=== PATIENT | male | born 1950 | race Caucasian/White ===

== ENCOUNTER → 2017-06-22 09:04 | Outpatient (CLI) | payer OTHER, SELFPAY ==
[2017-06-22 10:19] LABS: Add Manual Diff / Slide Review NO; Basophils Percent Auto 1.2 % (0-2); Eosinophils Percent Auto 3.8 % (2-4); Hematocrit 42.3 % (41-53); Hemoglobin 15.1 g/dL (13.5-17.5); Lymphocytes Percent Auto 30.7 % (25-40); Mean Corpuscular HGB Conc 35.7 % (30-36); Mean Corpuscular Hemoglobin 33.4 PG (26-34); Mean Corpuscular Volume 93.5 fL (80-100); Monocytes Percent Auto 7.6 % (3-14); Neutrophils Absolute Auto 2700 /uL (3000-5900); Neutrophils Percent Auto 56.7 % (50-75); Platelet Count 144 X10^3/uL (150-400); Red Blood Cell Count 4.53 X10^6/uL (4.5-5.9); Red Cell Distribution Width 12.4 % (11.6-14.8); White Blood Cell Count 4.7 X10^3/uL (4.5-11.0)
[2017-06-22 10:26] LABS: Hemoglobin A1C% w Est Avg Glu 5.9 % (4.0-6.0)
[2017-06-22 10:29] LABS: Alanine Aminotransferase 33 IU/L (21-72); Albumin 4.4 g/dL (3.5-5.0); Albumin Globulin Ratio 1.6 (1.0-2.8); Alkaline Phosphatase 40 U/L (38-126); Aspartate Aminotransferase 27 IU/L (17-59); BUN Creatinine Ratio 17.1 (6-22); Bilirubin Total 1.2 mg/dL (0.2-1.3); Calcium 9.5 mg/dL (8.4-10.2); Cholesterol 153 mg/dL (140-199); Estimated Glomerular Filt Rate > 60.0 mL/min (>60); Globulin 2.8 g/dL (1.7-4.1); Glucose 164 mg/dL (80-110); HDL Cholesterol 52 mg/dL (40-60); HEMOLYSIS < 15 (0-50); LDL Cholesterol Calculated 83 mg/dL (<100); Potassium 4.4 mmol/L (3.4-5.1); Sodium 140 mmol/L (137-145); Total Protein 7.2 g/dL (6.3-8.2); Triglycerides 88 mg/dL (35-150)
[2017-06-22 11:15] LABS: Creatinine Urine Random 202.1 mg/dL
[2017-06-22 11:20] LABS: Microalbumi Creatinin Ratio Ur 14.8 ug/mg CR (<30)
[2017-06-22 11:29] LABS: Thyroid Stimulating Hormone 3.09 uIU/mL (0.47-4.68)
== END ==
PROVIDERS: PCP Family Medicine; Visit Provider Family Medicine
DX: E78.2 Mixed hyperlipidemia (principal); Z51.81 Encounter for therapeutic drug level monitoring
CPT/HCPCS: 36415; 80053; 80061; 82043; 82570; 83036; 84443; 85025

== ENCOUNTER → 2017-07-06 12:21 | Outpatient (CLI) | payer OTHER, SELFPAY | PROVIDERS: Family Provider Family Medicine; PCP Family Medicine; Visit Provider Family Medicine | DX: Z12.5 Encounter for screening for malignant neoplasm of prostate (principal) | CPT/HCPCS: 36415; 84153 ==

== ENCOUNTER → 2017-12-26 08:19 | Outpatient (CLI) | payer OTHER, SELFPAY ==
--- NOTE | 2017-12-26 09:35 | PM.TREADMILL ---
Cardiac Stress Test Report Referral & Results Date Patient Seen: 12/26/17 Requesting provider: Dia Russell Indication: Chest pain Rest ECG: Unremarkable Please note: Actual ECG tracings can be found in the PACS system.
--- NOTE | 2017-12-26 09:36 | PM.TREADMILL ---
Cardiac Stress Test Report Referral & Results Date Patient Seen: 12/26/17 Requesting provider: Dia Russell Indication: Chest pain Rest ECG: Unremarkable Procedure Note: Today following both written and verbal informed consent, the patient was exercised according to a standard Yoan protocol. The patient exercised for a total of 12 min 1 sec achieving a maximum heart rate of 162. Patient's maximum systolic blood pressure was 200. This was an estimated 12.8 MET's. There are no ST-T segment changes Normal heart rate and blood pressure response to exercise Functional aerobic impairment way way way off the scale estimate his aerobic capacity to be equal to that of an active 40-year-old male Rare PVC seen in recovery only Impression: No evidence of ischemia Amazing exercise capacity Please note: Actual ECG tracings can be found in the PACS system.
== END ==
PROVIDERS: PCP Family Medicine; Visit Provider Family Medicine
DX: R07.9 Chest pain, unspecified (principal); E78.5 Hyperlipidemia, unspecified
CPT/HCPCS: 93016; 93017; 93018

== ENCOUNTER → 2018-01-18 10:00 | Outpatient (CLI) | payer OTHER, SELFPAY ==
[2018-01-18 10:41] LABS: Alanine Aminotransferase 34 IU/L (21-72); Albumin 4.6 g/dL (3.5-5.0); Albumin Globulin Ratio 1.6 (1.0-2.8); Alkaline Phosphatase 46 U/L (38-126); Aspartate Aminotransferase 28 IU/L (17-59); BUN Creatinine Ratio 18.6 (6-22); Bilirubin Total 1.2 mg/dL (0.2-1.3); Blood Urea Nitrogen 13 mg/dL (9-20); Calcium 9.3 mg/dL (8.4-10.2); Carbon Dioxide 22 mmol/L (22-32); Chloride 104 mmol/L (98-107); Cholesterol 205 mg/dL (140-199); Estimated Glomerular Filt Rate > 60.0 mL/min (>60); Globulin 2.8 g/dL (1.7-4.1); Glucose 146 mg/dL (80-110); HDL Cholesterol 54 mg/dL (40-60); HEMOLYSIS < 15 (0-50); LDL Cholesterol Calculated 132 mg/dL (<100); Potassium 4.3 mmol/L (3.4-5.1); Sodium 140 mmol/L (137-145); Total Protein 7.4 g/dL (6.3-8.2); Triglycerides 93 mg/dL (35-150)
[2018-01-18 10:50] LABS: Hemoglobin A1C% w Est Avg Glu 6.3 % (4.0-6.0)
== END ==
PROVIDERS: PCP Family Medicine; Visit Provider Family Medicine
DX: E78.5 Hyperlipidemia, unspecified (principal)
CPT/HCPCS: 36415; 80053; 80061; 83036

== ENCOUNTER 2018-04-14 04:58 | Emergency (ER) | payer OTHER, SELFPAY ==
[2018-04-14 05:05] VITALS: BP 142/86; PULSE 75; RESP 18; TEMP 36.8; O2SAT 95; BMI 27.1
--- NOTE | 2018-04-14 05:13 | ED_ITS ---
HPI - General Adult General Chief complaint: Urogenital-Male Stated complaint: LEFT KIDNEY PAIN Time Seen by Provider: 04/14/18 05:03 Source: patient Mode of arrival: ambulatory Limitations: no limitations History of Present Illness HPI narrative: Patient is a 67-year-old male here for evaluation of left-sided kidney pain. Patient states that he started to have some symptoms yesterday. Overnight things got worse. He has had some urinary hesitancy and urgency. He states that urinating does not change any of his symptoms. No constipation or diarrhea. He states that several years ago he had a kidney stone. He states this feels somewhat like kidney stone. No vomiting. No fevers. Has not tried anything for symptoms prior to arrival. Related Data Home Medications Medication Instructions Recorded Confirmed ASPIRIN (Aspir-Low) 81 mg PO Q DAY #0 09/07/10 03/02/18 Fish Oil (#FISH OIL) #0 09/07/10 03/02/18 Previous Rx's Medication Instructions Recorded Glucose: Test Strips str BID #100 01/31/17 lovastatin 40 mg tablet 40 mg PO HS #90 tab 03/02/18 hydrocodone-acetaminophen [[place]] 1 tab PO Q4-6H PRN #14 tab 04/14/18 ondansetron 4 mg PO Q6-8H PRN #10 tab 04/14/18 Allergies Allergy/AdvReac Type Severity Reaction Status Date / Time metformin [METFORMIN] Allergy Unknown Verified 03/02/18 10:52 Review of Systems Constitutional Denies fever(s) and Denies headache(s) ENT Ears, Nose, Mouth, and Throat: Denies vertigo and Denies headache(s) Cardiovascular Denies chest pain and Denies dyspnea Respiratory Denies dyspnea Gastrointestinal Gastrointestinal: Denies abdominal pain Genitourinary Reports flank pain, Reports urinary frequency and Reports urinary urgency Musculoskeletal Denies myalgias and Denies arthralgias Integumentary/Breasts Denies rash Neurologic Denies vertigo and Denies headache(s) Hematologic/Lymphatic Denies easy bleeding and Denies easy bruising PFSH Family History Brother Age: 58 Diabetes mellitus Social History Smoking Status: Former smoker Exam Initial Vital Signs Initial Vital Signs: Vital Signs Temperature 98.2 F 04/14/18 05:05 Pulse Rate 75 04/14/18 05:05 Respiratory Rate 18 04/14/18 05:05 Blood Pressure 142/86 H 04/14/18 05:05 Pulse Oximetry 95 04/14/18 05:05 Const General: cooperative, well developed, well groomed and No acute distress Orientation: alert, awake and oriented x3 HENMT Head: normal to inspection and normocephalic Resp Effort & Inspection: normal respiratory effort Auscultation: clear to auscultation bilaterally Cardio Rate: regular rate Rhythm: regular rhythm GI Inspection: non-distended Palpation: soft, No firm and No tender Back/Spine/Pelvis Back: No CVA tenderness Skin Lesions: no lesions Rashes: no rashes Neuro General: alert, awake and oriented x3 Cognition: normal cognition Speech: speech normal Extrem General: normal to inspection and capillary refill normal Psych Appearance: grossly normal and well kempt Course Orders Ordered: ED Orders 04/14/18 05:14 CT kidney ureter bladder (KUB) Stat 04/14/18 05:28 Basic Metabolic Panel Stat Discontinued Medications Acetaminophen (Tylenol) 975 mg PO NOW ONE Stop: 04/14/18 05:14 Last Admin: 04/14/18 05:32 Dose: 975 mg Lidocaine HCl 6.8 ml/ Sodium (Chloride) 56.8 mls @ 340.8 mls/hr IV NOW ONE Stop: 04/14/18 05:17 Last Admin: 04/14/18 06:14 Dose: 340.8 mls/hr Ketorolac Tromethamine (Toradol) 30 mg IV NOW ONE Stop: 04/14/18 05:14 Last Admin: 04/14/18 05:33 Dose: 30 mg Vital Signs - 8 hr 04/14/18 05:05 Temperature 98.2 F Pulse Rate 75 Respiratory Rate 18 Blood Pressure 142/86 H Pulse Oximetry 95 Medical Decision Making Lab Data Lab results reviewed: Yes I reviewed the patient's lab results. Result diagrams: 04/14/18 05:28 Lab Results 04/14/18 Range/Units 05:28 Sodium 137 (137-145) mmol/L Potassium 4.2 (3.4-5.1) mmol/L Chloride 103 (98-107) mmol/L Carbon Dioxide 23 (22-32) mmol/L BUN 15 (9-20) mg/dL Creatinine 0.90 (0.66-1.25) mg/dL Estimated GFR > 60.0 (>60) mL/min BUN/Creatinine Ratio 16.7 (6-22) Glucose 205 H (80-110) mg/dL Calcium 9.1 (8.4-10.2) mg/dL Urine Dip Bedside Urine Glucose Negative Bedside Urine Bilirubin - Negative Bedside Urine Ketone - Negative Urine Specific Hyden 1.030 Bedside Urine Occult Blood +/- Bedside Urine pH 6.0 Bedside Urine Protein - Negative Bedside Urine Urobilinogen - Negative Bedside Urine Nitrite - Negative Bedside Urine Leukocytes - Negative Esterase Point of care testing: Urine Dip Bedside Urine Glucose Negative Bedside Urine Bilirubin - Negative Bedside Urine Ketone - Negative Urine Specific Hyden 1.030 Bedside Urine Occult Blood +/- Bedside Urine pH 6.0 Bedside Urine Protein - Negative Bedside Urine Urobilinogen - Negative Bedside Urine Nitrite - Negative Bedside Urine Leukocytes - Negative Esterase Imaging Data CT scan - abdomen: Radiologist's impression: Mild left hydronephrosis secondary to a left UVJ calculus measuring 4 mm. MDM Narrative Medical decision making narrative: Creatinine is unremarkable. CT scan does show a 4 mm left-sided stone. Afebrile. No signs of infection. Almost complete resolution of pain after lidocaine. Informed patient of the CT scan findings. Will send home with pain medicine and nausea medication. He is given return precautions. He expressed understanding and agreement with plan. Discharge Plan Departure Patient Disposition: Home Clinical Impression: Renal colic on left side Instructions: DI for Kidney Stones Activity Restrictions/Additional Instructions: Increase your fluid intake Take medications as instructed. Return to the emergency department for any new symptoms, worsening pain, fevers, inability to urinate, or any other concerning symptoms. Prescriptions: New hydrocodone-acetaminophen [[place]] 5-325 mg tablet 1 tab PO Q4-6H PRN (Reason: pain) Qty: 14 RF: 0 ondansetron 4 mg tablet,disintegrating 4 mg PO Q6-8H PRN (Reason: nausea and vomiting) Qty: 10 RF: 0 No Action lovastatin 40 mg tablet 40 mg PO HS Qty: 90 RF: 1 ASPIRIN (Aspir-Low) 81 mg PO Q DAY Qty: 0 RF: 0 Fish Oil (#FISH OIL) Qty: 0 RF: 0 Glucose: Test Strips BID Qty: 100 RF: 3 Referrals: Dia Russell DO [Primary Care Provider] -
--- NOTE | 2018-04-14 05:14 | DI.CT.S_ITS ---
PROCEDURE: CT KIDNEY URETER BLADDER (KUB) INDICATIONS: Left side pain concern for stone TECHNIQUE: Noncontrast 5 mm thick sections acquired from the diaphragms to the symphysis. 5 mm thick coronal and sagittal reformats were then performed. For radiation dose reduction, the following was used: automated exposure control, adjustment of mA and/or kV according to patient size. COMPARISON: None. FINDINGS: Image quality: Excellent. Lung bases: Lung bases are clear. Heart size is normal. Very small hiatal hernia. Urinary system: Both kidneys are normal in size. There are small bilateral nephroliths measuring approximately 2 mm on the left and up to 4 mm on the right. There is mild left-sided hydroureteronephrosis secondary to a 4 mm distal left ureteral stone identified at the level of the ureterovesicular junction. No significant periureteral or perinephric stranding. No right-sided hydronephrosis. No urinary bladder stone. Visualized course of the right ureter is normal. No right ureteral stone. Bladder wall thickness is normal; no calcified bladder stones. Other solid organs: Liver is normal in size. Geographic fatty infiltration of the right hepatic lobe. Gallbladder appears normal in noncontrast CT appearance. Pancreas is normal in contours. Spleen is normal in size. No adrenal nodules. Peritoneum and bowel: Unenhanced bowel loops demonstrate normal wall thickness and caliber. No free fluid or air. Nodes and vessels: No retroperitoneal or mesenteric adenopathy by size criteria. Aorta and inferior vena cava are normal in caliber. Abdominal wall: No ventral hernias. Pelvis: No free pelvic fluid. No inguinal hernias or adenopathy. Bones: No suspicious bony lesions. No acute vertebral body compression fractures. Multilevel lumbar spondylosis with apparent progression at L1-2. IMPRESSION: 1. Bilateral nephrolithiasis with mild left hydroureteronephrosis secondary to an obstructing 4 mm distal left ureteral stone visualized at the left ureterovesicular junction. 2. Mild geographic fatty infiltration of the liver. Findings are concordant with preliminary radiology report. Dictated by: León Garcia M.D. on 04/14/2018 15:18 Approved by: León Garcia M.D. on 04/14/2018 at 15:26
[2018-04-14] MEDS: ACETAMINOPHEN 325 MG TABLET 975 MG PO (05:32)
[2018-04-14] MEDS: KETOROLAC 60 MG/2 ML VIAL 30 MG IV (05:33)
[2018-04-14 05:49] LABS: BUN Creatinine Ratio 16.7 (6-22); Blood Urea Nitrogen 15 mg/dL (9-20); Calcium 9.1 mg/dL (8.4-10.2); Carbon Dioxide 23 mmol/L (22-32); Chloride 103 mmol/L (98-107); Estimated Glomerular Filt Rate > 60.0 mL/min (>60); Glucose 205 mg/dL (80-110); HEMOLYSIS 17 (0-50); Potassium 4.2 mmol/L (3.4-5.1); Sodium 137 mmol/L (137-145)
[2018-04-14] MEDS: LIDOCAINE 2% 6.8 ML in SODIUM CHLORIDE 0.9% 50 ML 340.8 ML IV (06:14)
[2018-04-14 06:45] VITALS: BP 161/86; PULSE 74; RESP 15; O2SAT 96
== END 2018-04-14 06:47 | disposition home or self-care (01) ==
PROVIDERS: Emergency Provider Emergency Medicine; PCP Family Medicine
DX: N20.0 Calculus of kidney (principal)
CPT/HCPCS: 36591; 74176; 80048; 81003; 96374; 96375; 99283; 99284; J1885

== ENCOUNTER → 2018-06-11 13:37 | Outpatient (CLI) | payer OTHER, SELFPAY ==
--- NOTE | 2018-06-11 | DI.MRI.S_ITS ---
PROCEDURE: MR LUMBAR SPINE WO CON INDICATIONS: Anesthesia of skin, pain TECHNIQUE: Noncontrast sagittal T1 spin echo and T2 fast echo, sagittal STIR, axial T1 and T2 fast spin echo through the lumbar spine. In cases with scoliosis, additional coronal T2 fast spin echo may be performed. COMPARISON: [facility], CT, ABDOMEN/PELVIS WITH CONTRAST, 06/28/2008, 19:10. [facility], CT, CT KIDNEY URETER BLADDER (KUB), 04/14/2018, 5:29. FINDINGS: Image quality: Excellent. Alignment and Curvature: There is normal bony alignment. Bone Marrow: Marrow is of normal overall signal. Scattered foci are seen, which are hyperintense on T1-weighted and T2-weighted imaging, which are most consistent with benign vertebral body hemangiomas. No acute vertebral body compression fractures. Spinal Cord: Conus medullaris terminates at the L1 level. Visualized cord demonstrates normal signal and size. Paraspinous Soft Tissues: No paravertebral masses. T12-L1: Moderate loss of disc height is seen. Loss of disc signal is seen. [id number]-salnllbg disc bulge is seen. No significant neural foraminal narrowing is seen. Minimal central canal narrowing is seen. L1-L2: Moderate loss of disc height is seen. Loss of disc signal is seen. Moderate generalized disc bulge is seen. Reactive marrow endplate changes are seen which are hypointense on T1-weighted imaging and hyperintense on T2 weighted imaging, which is most consistent with edema (Modic type I changes). Mild facet joint hypertrophy is seen. There is at least moderate right-sided and mild left-sided neural foraminal narrowing seen. Moderate central canal narrowing is seen, as on series 5 image 11. L2-L3: Moderate loss of disc height is seen. Loss of disc signal is seen. Moderate disc bulge is seen, which is eccentric to the right side. Moderate facet joint hypertrophy is seen. Fluid is seen within the facet joints themselves. There is at least moderate bilateral neural foraminal narrowing seen, right worse than left. Moderate to severe central canal narrowing is seen at this level, as on series 5 images 16 and 17. L3-L4: Moderate loss of disc height is seen. Loss of disc signal is seen. Moderate generalized disc bulge is seen. There is a central disc protrusion seen. Moderate facet joint hypertrophy is seen. Moderate to severe bilateral neural foraminal narrowing is seen, left worse than right. There is a degree of compression seen upon the exiting nerve roots. Severe central canal narrowing is seen, as on series 5 image 22. L4-L5: Moderate loss of disc height is seen. Loss of disc signal is seen. Moderate generalized disc bulge is seen. Moderate to prominent facet hypertrophy is seen. There is at least moderate right-sided and moderate to severe left-sided neural foraminal narrowing seen. There is compression seen upon the exiting L4 nerve roots, left worse than right. Moderate to severe central canal narrowing is seen, as on series 5 image 27. L5-S1: Moderate loss of disc height is seen. Loss of disc signal is seen. Moderate generalized disc bulge is seen. Mild facet joint hypertrophy is seen. There is moderate to severe bilateral neural foraminal narrowing seen. There is a degree of compression seen upon the exiting L5 nerve roots. Mild central canal narrowing is seen. IMPRESSION: Multiple levels of lumbar spine degenerative change are seen, which are overall most prominent at L3-L4, where there is severe central canal narrowing and moderate to severe bilateral neural foraminal narrowing. Dictated by: Jose De Jesus Ferris M.D. on 06/11/2018 at 14:06 Approved by: Jose De Jesus Ferris M.D. on 06/11/2018 at 14:12
== END ==
PROVIDERS: PCP Family Medicine; Visit Provider Specialist
DX: R20.0 Anesthesia of skin (principal); M54.42 Lumbago with sciatica, left side; M54.41 Lumbago with sciatica, right side; M47.816 Spondylosis without myelopathy or radiculopathy, lumbar region; M48.061 Spinal stenosis, lumbar region without neurogenic claudication; G89.29 Other chronic pain
CPT/HCPCS: 72148

== ENCOUNTER → 2018-06-25 11:48 | Outpatient (CLI) | payer OTHER, SELFPAY ==
--- NOTE | 2018-06-25 11:50 | DI.RAD.S_ITS ---
PROCEDURE: XR ELBOW LT MIN 3V INDICATIONS: Left elbow pain TECHNIQUE: 3 views of the elbow were acquired. COMPARISON: None. FINDINGS: Bones: No fractures or dislocations. No suspicious bony lesions. Soft tissues: No elbow joint effusion. No suspicious soft tissue calcifications. IMPRESSION: No elbow fracture or dislocation. No joint effusion. Dictated by: Abdirahman Garg M.D. on 06/25/2018 at 16:05 Approved by: Abdirahman Garg M.D. on 06/25/2018 at 16:07
== END ==
PROVIDERS: PCP Family Medicine; Visit Provider Registered Nurse
DX: M25.522 Pain in left elbow (principal)
CPT/HCPCS: 73080

== ENCOUNTER → 2018-08-22 07:59 | Outpatient (CLI) | payer OTHER, SELFPAY ==
[2018-08-22 09:05] LABS: Hemoglobin A1C% w Est Avg Glu 5.6 % (4.0-6.0)
[2018-08-22 09:34] LABS: Alanine Aminotransferase 20 IU/L (21-72); Albumin 4.2 g/dL (3.5-5.0); Albumin Globulin Ratio 1.5 (1.0-2.8); Alkaline Phosphatase 48 U/L (38-126); Aspartate Aminotransferase 25 IU/L (17-59); Blood Urea Nitrogen 16 mg/dL (9-20); Calcium 9.5 mg/dL (8.4-10.2); Carbon Dioxide 24 mmol/L (22-32); Chloride 103 mmol/L (98-107); Cholesterol 238 mg/dL (140-199); Estimated Glomerular Filt Rate > 60.0 mL/min (>60); Globulin 2.8 g/dL (1.7-4.1); Glucose 163 mg/dL (80-110); HDL Cholesterol 59 mg/dL (40-60); HEMOLYSIS < 15 (0-50); LDL Cholesterol Calculated 154 mg/dL (<100); Potassium 4.5 mmol/L (3.4-5.1); Sodium 138 mmol/L (137-145); Triglycerides 127 mg/dL (35-150)
== END ==
PROVIDERS: PCP Family Medicine; Visit Provider Family Medicine
DX: E11.9 Type 2 diabetes mellitus without complications (principal); E78.5 Hyperlipidemia, unspecified
CPT/HCPCS: 36415; 80053; 80061; 83036

== ENCOUNTER → 2018-08-24 08:30 | Outpatient (CLI) | payer OTHER, SELFPAY ==
--- NOTE | 2018-08-24 08:31 | DI.US.S_ITS ---
PROCEDURE: US CAROTID DOPPLER BI INDICATIONS: CONJUCTIVAL HEMORRHAGE TECHNIQUE: Color and pulse Doppler interrogation was performed of both carotid systems, with image documentation and velocity measurements. COMPARISON: None. FINDINGS: Stenosis calculations are based on SRU (Society of Radiologists in Ultrasound) criteria. Right side: Brachial blood pressure: 140/84 mm Hg. Common carotid artery peak systolic velocity: 75 cm/sec. Internal carotid artery peak systolic velocity: 64 cm/sec. Internal carotid artery end diastolic velocity: 27 cm/sec. External carotid artery peak systolic velocity: 76 cm/sec. ICA/CCA peak systolic ratio: 0.9. Mayo scale imaging description: Heavy scattered plaque. Percent internal carotid artery stenosis: Less than 50%. Vertebral artery: Flow direction is antegrade. Left side: Brachial blood pressure: 138/82 mm Hg. Common carotid artery peak systolic velocity: 92 cm/sec. Internal carotid artery peak systolic velocity: 65 cm/sec. Internal carotid artery end diastolic velocity: 18 cm/sec. External carotid artery peak systolic velocity: 90 cm/sec. ICA/CCA peak systolic ratio: 0.7. Mayo scale imaging description: Heavy scattered plaque. Percent internal carotid artery stenosis: Less than 50%. Vertebral artery: Flow direction is antegrade. IMPRESSION: Less than 50% bilateral internal carotid artery stenosis. Dictated by: Shaun Garcia [facility] Interpreted: Abdirahman Garg MD on 08/27/2018 at 16:59 Approved by: Abdirahman Garg M.D. on 08/27/2018 at 17:33
== END ==
PROVIDERS: PCP Family Medicine; Visit Provider Family Medicine
DX: H11.33 Conjunctival hemorrhage, bilateral (principal)
CPT/HCPCS: 93880

== ENCOUNTER 2018-09-17 12:00 | Outpatient (RCR) | payer OTHER, SELFPAY ==
--- NOTE | 2018-08-17 12:01 | PT.OIE ---
Current Diagnoses Pain in left elbow (08/17/18) Lateral epicondylitis, left elbow (08/17/18) Past Medical History (Last Reviewed 06/28/17 @ 10:55 by Dia Russell DO) Hearing loss (Chronic 1996) History of tinnitus (Chronic 1994) Hyperlipidemia (Chronic Unknown) Knee pain (Chronic Unknown) Type 2 diabetes mellitus (Chronic ~2014) Chickenpox (Resolved 1956) Colon polyps (Resolved Unknown) Measles (Resolved 1954) Past Surgical History (Last Reviewed 06/28/17 @ 10:55 by Dia Russell DO) History of tonsillectomy Provider Visit Care Team Role Provider Type Dia Russell DO Primary Care Provider Physician Specialty: Family Practice Address: [address] [place] [address], [id number] Email: [email or web address] Fernandes MD Attending Provider Physician Specialty: Orthopedic Surgery Address: [address] [place] [address], [id number] Email: [email or web address] Physical Therapy Initial Evaluation PT-OP-A Visit Information Start: 08/17/18 11:29 Freq: Status: Active Protocol: Document 08/17/18 09:00 DCW (Rec: 08/17/18 12:01 [facility] [id number]) Out-Patient Physical Therapy Visit Information Visit Information Visit Type Initial Evaluation Visit Start Time 09:00 Visit Stop Time 09:45 Total Visit Minutes 45 Visit Number 1 Number of SALES RECRUITER Visits 0 Evaluation Information Evaluation Date 08/17/18 PT-OP-B Current Condition Start: 08/17/18 11:29 Freq: Status: Active Protocol: Document 08/17/18 09:00 DCW (Rec: 08/17/18 12:01 [facility] [id number]) Current Condition History of Current Condition Onset Date 7 months Current Complaints left elbow pain History of Current Condition Pt is a 68 year old male presenting with a 6-7 month history of left lateral elbow pain. 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 This time, however, he is unaware of what may have started his pain. Pt also notes that when he has had it previously, it always went away rather quickly, but this has been around for 7 months now. Pt notes the pain has not influenced most of his daily activities, however he has cut back on his weightlifting in an effort to not aggravate it. Prior Functional Status Baseline Function- ADL's Independent Baseline Function- Mobility Independent Current Functional Impairments (Reported) Functional Limitations- Recreation/ Limits weightlifting Hobbies PT-OP-C Subjective Start: 08/17/18 11:29 Freq: Status: Active Protocol: Document 08/17/18 09:00 DCW (Rec: 08/17/18 12:01 DC [id number]) OP-PT Subjective Patient Comments Patient Comments It does seem to have gotten a little better over the past few months, but it still bother me quite a bit. Patient Reported Progress Improving OP-PT Pain Assessment Pain Assessment Grid Paper Pain Assessment Grid Completed Yes Location Left Lateral Elbow Intensity 2 Scale Used Numeric (1 - 10) Other Pain Alleviating Factors Naproxin PT-OP-F Manual Assessment Start: 08/17/18 11:29 Freq: Status: Active Protocol: Document 08/17/18 09:00 DCW (Rec: 08/17/18 12:01 [facility] [id number]) Manual Assessments Soft Tissue Assessment Soft Tissue Mobility Assessment With palpation, left lateral epicondyle and surrounding has feeling of mild edema/ inflammation underneath the surface. Pt reports tenderness at location of lateral epicondyle, common extensor tendon, and proximal wrist extensors. PT-OP-K Range of Motion Start: 08/17/18 11:29 Freq: Status: Active Protocol: Document 08/17/18 09:00 DCW (Rec: 08/17/18 12:01 [facility] [id number]) Elbow/Forearm Range of Motion Elbow/Forearm Left Active Elbow/Forearm ROM WFL Yes ROM Testing Position Sitting Wrist Goniometric Range of Motion Wrist Left Wrist ROM WFL Yes PT-OP-L Special Tests Start: 08/17/18 11:29 Freq: Status: Active Protocol: Document 08/17/18 09:00 DCW (Rec: 08/17/18 12:01 [facility] [id number]) Special Tests Elbow Special Tests Lateral Epicondylitis Flexed Test Results Negative Lateral Epicondylitis Extended Test Results Positive Left PT-OP-M Strength Start: 08/17/18 11:29 Freq: Status: Active Protocol: Document 08/17/18 09:00 DCW (Rec: 08/17/18 12:01 [facility] [id number]) Wrist Strength Wrist Manual Muscle Testing Left Comments Strength WNL, mild pain with resisted supination Hand Installation Specialist/Pinch Strength Hand Strength Left Comments Dynamometer out for service, test upon return. PT-OP-Q Treatments Start: 08/17/18 11:29 Freq: Status: Active Protocol: Document 08/17/18 09:00 DCW (Rec: 08/17/18 12:01 [facility] [id number]) Therapeutic Exercises Sitting Exercises 4-way wrist flexion Sitting Exercise Name 4-way wrist flexion Side left Pronation/Supination Sitting Exercise Name Forearm pronation/supination Side left [facility] Treatment Taping 1 Body Location Left lateral epicondylitis taping Type of Tape Kinesio Tape Comments 3 I strips PT-OP-R Modalities Start: 08/17/18 11:29 Freq: Status: Active Protocol: Document 08/17/18 09:00 DCW (Rec: 08/17/18 12:01 [facility] [id number]) Ultrasound Therapy Treatment Left Lateral Elbow Treatment Duration (minutes) 8 Patient Position Sitting Coupling Medium Ultrasound Gel Applicator Size (cm2) 5 Frequency Setting (mHz) 3 Duty Cycle 50% PT-OP-T Assessment and Plan Start: 08/17/18 11:29 Freq: Status: Active Protocol: Document 08/17/18 09:00 DCW (Rec: 08/17/18 12:01 [facility] [id number]) Physical Therapy Assessment Rehab Potential Rehabilitation Potential Good Evaluation Complexity Number of Personal Factors/Comorbidities 0 Number of Body Systems Impaired 1-2 Clinical Presentation at Evaluation Stable Impairments Impairments Pain Soft Tissue Mobility Goals Two Impairment Pt restraict with his weightlifting routine due to elbow pain [place] Goal (LTG) Pt to return to full routine with no limitations and no increased pain. LTG Duration 10/18/18 One Impairment Pt does not have an appropriate home exercise program Short Term Goal (STG) Pt to be independent and compliant with an appropriate HEP STG Duration 09/17/18 Assessment Summary Assessment Pt arrives to his physical therapy evaluation with a fairly classic presentation of left lateral epicondylitis. Pt is muscular at baseline, so his strength does not appear to be too negatively effected at this time. Pt's has tenderness to palpation and a noticeable pocket of mild edema/inflammation around his lateral epicondyle. Pt should benefit from skilled therapy focusing on STM/cross-friction massage, US, Iontophoresis, gentle strengthening, K-tape, and Ice massage. Clinic's dynamometer is currently out for servicing, and upon it's return, pt's garnetter strength should also be assessed. Physical Therapy Plan Frequency and Duration Frequency of Treatment 2x/Week Duration of Treatment 2 months Plan of Care Start Date 08/17/18 Plan of Care End Date 10/18/18 Therapeutic Interventions Therapeutic Interventions Home Exercise Program Joint Mobilizations Manual Therapy Patient/Caregiver Education Self-Care/Home Management Soft Tissue Mobilization Taping Therapeutic Activities Therapeutic Exercises Modalities Cold Pack/Ice Massage Electric Stimulation Hot Packs Iontophoresis Ultrasound Other Therapeutic Interventions Iontophoresis /c Dexamethasone , 4 mg/mL Next Visit Focus/Plan Next Note Type Treatment Note Next Visit Plan US, STM, strengthening, Ionto if signed POC is returned, assess effectiveness of K-tape
--- NOTE | 2018-08-17 12:02 | PT.OPPOC ---
Current Diagnoses Pain in left elbow (08/17/18) Lateral epicondylitis, left elbow (08/17/18) Provider Visit Care Team Role Provider Type Dia Russell DO Primary Care Provider Physician Specialty: Family Practice Address: [address] [place] [address], [id number] Email: [email or web address] Herman Fernandes MD Attending Provider Physician Specialty: Orthopedic Surgery Address: [address] [place] [address], [id number] Email: [email or web address] Plan Of Care PT-OP-T Assessment and Plan Start: 08/17/18 11:29 Freq: Status: Active Protocol: Document 08/17/18 09:00 DCW (Rec: 08/17/18 12:01 DCW [id number]) Physical Therapy Assessment Rehab Potential Rehabilitation Potential Good Evaluation Complexity Number of Personal Factors/Comorbidities 0 Number of Body Systems Impaired 1-2 Clinical Presentation at Evaluation Stable Impairments Impairments Pain Soft Tissue Mobility Goals Two Impairment Pt restraict with his weightlifting routine due to elbow pain Mcfp Goal (LTG) Pt to return to full routine with no limitations and no increased pain. LTG Duration 10/18/18 One Impairment Pt does not have an appropriate home exercise program Short Term Goal (STG) Pt to be independent and compliant with an appropriate HEP STG Duration 09/17/18 Assessment Summary Assessment Pt arrives to his physical therapy evaluation with a fairly classic presentation of left lateral epicondylitis. Pt is muscular at baseline, so his strength does not appear to be too negatively effected at this time. Pt's has tenderness to palpation and a noticeable pocket of mild edema/inflammation around his lateral epicondyle. Pt should benefit from skilled therapy focusing on STM/cross-friction massage, US, Iontophoresis, gentle strengthening, K-tape, and Ice massage. Clinic's dynamometer is currently out for servicing, and upon it's return, pt's ehr trainer strength should also be assessed. Physical Therapy Plan Frequency and Duration Frequency of Treatment 2x/Week Duration of Treatment 2 months Plan of Care Start Date 08/17/18 Plan of Care End Date 10/18/18 Therapeutic Interventions Therapeutic Interventions Home Exercise Program Joint Mobilizations Manual Therapy Patient/Caregiver Education Self-Care/Home Management Soft Tissue Mobilization Taping Therapeutic Activities Therapeutic Exercises Modalities Cold Pack/Ice Massage Electric Stimulation Hot Packs Iontophoresis Ultrasound Other Therapeutic Interventions Iontophoresis /c Dexamethasone , 4 mg/mL Next Visit Focus/Plan Next Note Type Treatment Note Next Visit Plan US, STM, strengthening, Ionto if signed POC is returned, assess effectiveness of K-tape Plan of Care Dates Plan of Care Start Date 08/17/18 Plan of Care End Date 10/18/18 Please Sign and Return: I have reviewed this Plan of Care and certify that the skilled therapy services above are required to meet the patient?s needs. Physician Signature Date Printed Name and Credentials Clinical Instructor Signature Printed Name and Credentials
--- NOTE | 2018-08-21 16:49 | PT.OTN ---
Current Diagnoses Pain in left elbow (08/21/18) Lateral epicondylitis, left elbow (08/21/18) Physical Therapy Treatment Note PT-OP-A Visit Information Start: 08/17/18 11:29 Freq: Status: Active Protocol: Document 08/21/18 16:37 GGD (Rec: 08/21/18 16:49 GGD [email or web address]) Out-Patient Physical Therapy Visit Information Visit Information Visit Type Treatment Note Visit Start Time 13:45 Visit Stop Time 14:25 Total Visit Minutes 40 Visit Number 2 Number of REST ROOM MATRON Visits 1 Evaluation Information Evaluation Date 08/17/18 PT-OP-B Current Condition Start: 08/17/18 11:29 Freq: Status: Active Protocol: Document 08/17/18 09:00 DCW (Rec: 08/17/18 12:01 DCW [id number]) Current Condition History of Current Condition Onset Date 7 months Current Complaints left elbow pain History of Current Condition Pt is a 68 year old male presenting with a 6-7 month history of left lateral elbow pain. 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 This time, however, he is unaware of what may have started his pain. Pt also notes that when he has had it previously, it always went away rather quickly, but this has been around for 7 months now. Pt notes the pain has not influenced most of his daily activities, however he has cut back on his weightlifting in an effort to not aggravate it. Prior Functional Status Baseline Function- ADL's Independent Baseline Function- Mobility Independent Current Functional Impairments (Reported) Functional Limitations- Recreation/ Limits weightlifting Hobbies PT-OP-C Subjective Start: 08/17/18 11:29 Freq: Status: Active Protocol: Document 08/21/18 16:37 GGD (Rec: 08/21/18 16:49 GGD [email or web address]) OP-PT Subjective Patient Comments Patient Comments Pt state he getting better, the tape didn't stay on very long. PT-OP-F Manual Assessment Start: 08/17/18 11:29 Freq: Status: Active Protocol: Document 08/17/18 09:00 DCW (Rec: 08/17/18 12:01 DCW [id number]) Manual Assessments Soft Tissue Assessment Soft Tissue Mobility Assessment With palpation, left lateral epicondyle and surrounding has feeling of mild edema/ inflammation underneath the surface. Pt reports tenderness at location of lateral epicondyle, common extensor tendon, and proximal wrist extensors. PT-OP-K Range of Motion Start: 08/17/18 11:29 Freq: Status: Active Protocol: Document 08/17/18 09:00 DCW (Rec: 08/17/18 12:01 [facility] [id number]) Elbow/Forearm Range of Motion Elbow/Forearm Left Active Elbow/Forearm ROM WFL Yes ROM Testing Position Sitting Wrist Goniometric Range of Motion Wrist Left Wrist ROM WFL Yes PT-OP-L Special Tests Start: 08/17/18 11:29 Freq: Status: Active Protocol: Document 08/17/18 09:00 DCW (Rec: 08/17/18 12:01 [facility] [id number]) Special Tests Elbow Special Tests Lateral Epicondylitis Flexed Test Results Negative Lateral Epicondylitis Extended Test Results Positive Left PT-OP-M Strength Start: 08/17/18 11:29 Freq: Status: Active Protocol: Document 08/17/18 09:00 DCW (Rec: 08/17/18 12:01 DC [id number]) Wrist Strength Wrist Manual Muscle Testing Left Comments Strength WNL, mild pain with resisted supination Hand Windows [employer] Deployment Lead/Pinch Strength Hand Strength Left Comments Dynamometer out for service, test upon return. PT-OP-Q Treatments Start: 08/17/18 11:29 Freq: Status: Active Protocol: Document 08/21/18 16:37 GGD (Rec: 08/21/18 16:49 GGD [email or web address]) Therapeutic Exercises Sitting Exercises eccentric wrist flexion Side left Equipment Used red thera bar Reps/Minutes 20 x wrist extension str Sitting Exercise Name wrist extension str Side left Reps/Minutes 60 sec 4-way wrist flexion Sitting Exercise Name 4-way wrist flexion Side left Pronation/Supination Sitting Exercise Name Forearm pronation/supination Side left Equipment Used Hammer Manual Therapy Treatment Soft Tissue Mobilization 1 Body Location left forearm Mobilization Type Oscillations Intensity/Depth Moderate Body Position Sitting PT-OP-R Modalities Start: 08/17/18 11:29 Freq: Status: Active Protocol: Document 07/16/19 16:37 GGD (Rec: 07/16/19 16:49 GGD [email or web address]) Ultrasound Therapy Treatment Left Lateral Elbow Treatment Duration (minutes) 8 Patient Position Sitting Coupling Medium Ultrasound Gel Applicator Size (cm2) 5 Frequency Setting (mHz) 3 Duty Cycle 50% PT-OP-T Assessment and Plan Start: 08/17/18 11:29 Freq: Status: Active Protocol: Document 08/21/18 16:37 GGD (Rec: 08/21/18 16:49 GGD [email or web address]) Physical Therapy Assessment Assessment Summary Assessment Pt need cues for exercise. He did have mild tenderness with STM. Pt has good understanding of HEP> Physical Therapy Plan Frequency and Duration Frequency of Treatment 2x/Week Duration of Treatment 2 months Plan of Care Start Date 08/17/18 Plan of Care End Date 10/18/18 Next Visit Focus/Plan Next Note Type Treatment Note Next Visit Plan US, STM, strengthening, Ionto if signed POC is returned
--- NOTE | 2018-08-23 12:52 | PT.OTN ---
Current Diagnoses Pain in left elbow (08/23/18) Lateral epicondylitis, left elbow (08/23/18) Physical Therapy Treatment Note PT-OP-A Visit Information Start: 08/17/18 11:29 Freq: Status: Active Protocol: Document 08/23/18 11:18 LRN (Rec: 08/23/18 12:05 LRN [id number]) Out-Patient Physical Therapy Visit Information Visit Information Visit Type Treatment Note Visit Start Time 11:18 Visit Stop Time 12:07 Total Visit Minutes 49 Visit Number 3 Number of FENCE MACHINE OPERATOR Visits 1 Evaluation Information Evaluation Date 08/17/18 PT-OP-B Current Condition Start: 08/17/18 11:29 Freq: Status: Active Protocol: Document 08/17/18 09:00 DCW (Rec: 08/17/18 12:01 DCW [id number]) Current Condition History of Current Condition Onset Date 7 months Current Complaints left elbow pain History of Current Condition Pt is a 68 year old male presenting with a 6-7 month history of left lateral elbow pain. 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 This time, however, he is unaware of what may have started his pain. Pt also notes that when he has had it previously, it always went away rather quickly, but this has been around for 7 months now. Pt notes the pain has not influenced most of his daily activities, however he has cut back on his weightlifting in an effort to not aggravate it. Prior Functional Status Baseline Function- ADL's Independent Baseline Function- Mobility Independent Current Functional Impairments (Reported) Functional Limitations- Recreation/ Limits weightlifting Hobbies PT-OP-C Subjective Start: 08/17/18 11:29 Freq: Status: Active Protocol: Document 08/23/18 11:18 LRN (Rec: 08/23/18 12:47 LRN [id number]) OP-PT Subjective Patient Comments Patient Reported Progress Improving PT-OP-F Manual Assessment Start: 08/17/18 11:29 Freq: Status: Active Protocol: Document 08/17/18 09:00 DCW (Rec: 08/17/18 12:01 DCW [id number]) Manual Assessments Soft Tissue Assessment Soft Tissue Mobility Assessment With palpation, left lateral epicondyle and surrounding has feeling of mild edema/ inflammation underneath the surface. Pt reports tenderness at location of lateral epicondyle, common extensor tendon, and proximal wrist extensors. PT-OP-K Range of Motion Start: 08/17/18 11:29 Freq: Status: Active Protocol: Document 08/17/18 09:00 DCW (Rec: 08/17/18 12:01 DCW [id number]) Elbow/Forearm Range of Motion Elbow/Forearm Left Active Elbow/Forearm ROM WFL Yes ROM Testing Position Sitting Wrist Goniometric Range of Motion Wrist Left Wrist ROM WFL Yes PT-OP-L Special Tests Start: 08/17/18 11:29 Freq: Status: Active Protocol: Document 08/17/18 09:00 DCW (Rec: 08/17/18 12:01 DCW [id number]) Special Tests Elbow Special Tests Lateral Epicondylitis Flexed Test Results Negative Lateral Epicondylitis Extended Test Results Positive Left PT-OP-M Strength Start: 08/17/18 11:29 Freq: Status: Active Protocol: Document 08/17/18 09:00 DCW (Rec: 08/17/18 12:01 DCW [id number]) Wrist Strength Wrist Manual Muscle Testing Left Comments Strength WNL, mild pain with resisted supination Hand Lead Laying And Gluing Machine Operator/Pinch Strength Hand Strength Left Comments Dynamometer out for service, test upon return. PT-OP-Q Treatments Start: 08/17/18 11:29 Freq: Status: Active Protocol: Document 08/23/18 11:18 LRN (Rec: 08/23/18 12:05 LRN [id number]) Therapeutic Exercises Sitting Exercises L wrist ext Sitting Exercise Name L wrist ext w/elbow flexed & extended Equipment Used Red bar, Lev 1 T-Band Comments Elbow full ext - gravity resisted eccentric wrist flexion Side left Equipment Used red thera bar Reps/Minutes 20 x wrist extension str Sitting Exercise Name wrist extension str Side left Reps/Minutes 60 sec Comments Elbow flexed & extended 4-way wrist flexion Sitting Exercise Name 4-way wrist flexion Side left Pronation/Supination Sitting Exercise Name Forearm pronation/supination Side left Equipment Used Hammer Manual Therapy Treatment Soft Tissue Mobilization 1 Body Location left forearm Mobilization Type Oscillations Strumming Intensity/Depth Moderate Body Position Sitting PT-OP-R Modalities Start: 08/17/18 11:29 Freq: Status: Active Protocol: Document 08/23/18 11:18 LRN (Rec: 08/23/18 12:05 LRN [id number]) Hot Pack/Cold Pack Treatment Cold Pack Location L elbow Patient Position Sitting Treatment Duration (minutes) 10 Comments At end of treatment Ultrasound Therapy Treatment Left Lateral Elbow Treatment Duration (minutes) 8 Patient Position Sitting Coupling Medium Ultrasound Gel Applicator Size (cm2) 5 Frequency Setting (mHz) 3 Duty Cycle 50% Intensity Setting (w/cm2) 1.0 Comments At start of treatment PT-OP-T Assessment and Plan Start: 08/17/18 11:29 Freq: Status: Active Protocol: Document 08/23/18 11:18 LRN (Rec: 08/23/18 12:05 LRN [id number]) Physical Therapy Assessment Assessment Summary Assessment Slight discomfort at L lateral elbow with active wrist extension when elbow is in full extension. POC not returned for Ionto use. Physical Therapy Plan Frequency and Duration Frequency of Treatment 2x/Week Duration of Treatment 2 months Plan of Care Start Date 08/17/18 Plan of Care End Date 10/18/18 Next Visit Focus/Plan Next Note Type Treatment Note Next Visit Plan Check pt's response to use of ice at end of treatment. US, STM, strengthening, Ionto if signed POC is returned.
--- NOTE | 2018-08-28 15:11 | PT-OP ANOTE ---
Pt cancelled due to emergency at home (water leak).
--- NOTE | 2018-08-30 14:46 | PT.OTN ---
Current Diagnoses Pain in left elbow (08/30/18) Lateral epicondylitis, left elbow (08/30/18) Physical Therapy Treatment Note PT-OP-A Visit Information Start: 08/17/18 11:29 Freq: Status: Active Protocol: Document 08/30/18 09:45 GGD (Rec: 08/30/18 14:46 GGD [email or web address]) Out-Patient Physical Therapy Visit Information Visit Information Visit Type Treatment Note Visit Start Time 09:45 Visit Stop Time 10:40 Total Visit Minutes 50 Visit Number 4 Number of ACADEMIC COUNSELOR Visits 1 Evaluation Information Evaluation Date 08/17/18 PT-OP-B Current Condition Start: 08/17/18 11:29 Freq: Status: Active Protocol: Document 08/17/18 09:00 DCW (Rec: 08/17/18 12:01 DCW [id number]) Current Condition History of Current Condition Onset Date 7 months Current Complaints left elbow pain History of Current Condition Pt is a 68 year old male presenting with a 6-7 month history of left lateral elbow pain. 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 This time, however, he is unaware of what may have started his pain. Pt also notes that when he has had it previously, it always went away rather quickly, but this has been around for 7 months now. Pt notes the pain has not influenced most of his daily activities, however he has cut back on his weightlifting in an effort to not aggravate it. Prior Functional Status Baseline Function- ADL's Independent Baseline Function- Mobility Independent Current Functional Impairments (Reported) Functional Limitations- Recreation/ Limits weightlifting Hobbies PT-OP-C Subjective Start: 08/17/18 11:29 Freq: Status: Active Protocol: Document 08/30/18 09:45 GGD (Rec: 08/30/18 14:46 GGD [id number]) OP-PT Subjective Patient Comments Patient Comments Pt states his pain is decreasing. PT-OP-F Manual Assessment Start: 08/17/18 11:29 Freq: Status: Active Protocol: Document 08/17/18 09:00 DCW (Rec: 08/17/18 12:01 DCW [id number]) Manual Assessments Soft Tissue Assessment Soft Tissue Mobility Assessment With palpation, left lateral epicondyle and surrounding has feeling of mild edema/ inflammation underneath the surface. Pt reports tenderness at location of lateral epicondyle, common extensor tendon, and proximal wrist extensors. PT-OP-K Range of Motion Start: 08/17/18 11:29 Freq: Status: Active Protocol: Document 08/17/18 09:00 DCW (Rec: 08/17/18 12:01 DCW [id number]) Elbow/Forearm Range of Motion Elbow/Forearm Left Active Elbow/Forearm ROM WFL Yes ROM Testing Position Sitting Wrist Goniometric Range of Motion Wrist Left Wrist ROM WFL Yes PT-OP-L Special Tests Start: 08/17/18 11:29 Freq: Status: Active Protocol: Document 08/17/18 09:00 DCW (Rec: 08/17/18 12:01 DCW [id number]) Special Tests Elbow Special Tests Lateral Epicondylitis Flexed Test Results Negative Lateral Epicondylitis Extended Test Results Positive Left PT-OP-M Strength Start: 08/17/18 11:29 Freq: Status: Active Protocol: Document 08/17/18 09:00 DCW (Rec: 08/17/18 12:01 DCW [id number]) Wrist Strength Wrist Manual Muscle Testing Left Comments Strength WNL, mild pain with resisted supination Hand Cloth Mercerizing Supervisor/Pinch Strength Hand Strength Left Comments Dynamometer out for service, test upon return. PT-OP-Q Treatments Start: 08/17/18 11:29 Freq: Status: Active Protocol: Document 08/30/18 09:45 GGD (Rec: 08/30/18 14:46 GGD [email or web address]) Therapeutic Exercises Sitting Exercises L wrist ext Sitting Exercise Name L wrist ext w/elbow flexed & extended Equipment Used Red bar, Lev 1 T-Band Comments Elbow full ext - gravity resisted eccentric wrist flexion Side left Equipment Used red thera bar Reps/Minutes 20 x wrist extension str Sitting Exercise Name wrist extension str Side left Reps/Minutes 60 sec Comments Elbow flexed & extended 4-way wrist flexion Sitting Exercise Name 4-way wrist flexion Side left Pronation/Supination Sitting Exercise Name Forearm pronation/supination Side left Equipment Used Hammer Manual Therapy Treatment Soft Tissue Mobilization 1 Body Location left forearm Mobilization Type Oscillations Strumming Intensity/Depth Moderate Body Position Sitting PT-OP-R Modalities Start: 08/17/18 11:29 Freq: Status: Active Protocol: Document 08/30/18 09:45 GGD (Rec: 08/30/18 14:46 GGD [id number]) Hot Pack/Cold Pack Treatment Cold Pack Location L elbow Patient Position Sitting Treatment Duration (minutes) 10 Comments At end of treatment Ultrasound Therapy Treatment Left Lateral Elbow Treatment Duration (minutes) 8 Patient Position Sitting Coupling Medium Ultrasound Gel Applicator Size (cm2) 5 Frequency Setting (mHz) 3 Duty Cycle 50% Intensity Setting (w/cm2) 1.0 PT-OP-T Assessment and Plan Start: 08/17/18 11:29 Freq: Status: Active Protocol: Document 08/30/18 09:45 GGD (Rec: 08/30/18 14:46 GGD [email or web address]) Physical Therapy Assessment Goals Two Impairment Pt restraint with his weightlifting routine due to elbow pain Automation Qa Analyst Goal (LTG) Pt to return to full routine with no limitations and no increased pain. LTG Duration 10/18/18 One Impairment Pt does not have an appropriate home exercise program Short Term Goal (STG) Pt to be independent and compliant with an appropriate HEP STG Duration 09/17/18 Assessment Summary Assessment Pt continues to have tenderness with palpation, but is decreasing. He is having no pain with active ROM. Physical Therapy Plan Frequency and Duration Frequency of Treatment 2x/Week Duration of Treatment 2 months Plan of Care Start Date 08/17/18 Plan of Care End Date 10/18/18 Next Visit Focus/Plan Next Note Type Treatment Note Next Visit Plan US, STM, strengthening, Ionto if signed POC is returned.
--- NOTE | 2018-09-13 15:59 | PT.OTN ---
Current Diagnoses Pain in left elbow (09/13/18) Lateral epicondylitis, left elbow (09/13/18) Physical Therapy Treatment Note PT-OP-A Visit Information Start: 08/17/18 11:29 Freq: Status: Active Protocol: Document 09/13/18 15:04 LRN (Rec: 09/13/18 15:54 LRN [id number]) Out-Patient Physical Therapy Visit Information Visit Information Visit Type Treatment Note Visit Start Time 15:04 Visit Stop Time 15:44 Total Visit Minutes 40 Visit Number 5 Number of DIE ATTACHER Visits 0 Evaluation Information Evaluation Date 08/17/18 PT-OP-B Current Condition Start: 08/17/18 11:29 Freq: Status: Active Protocol: Document 08/17/18 09:00 DCW (Rec: 08/17/18 12:01 DCW [id number]) Current Condition History of Current Condition Onset Date 7 months Current Complaints left elbow pain History of Current Condition Pt is a 68 year old male presenting with a 6-7 month history of left lateral elbow pain. 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 This time, however, he is unaware of what may have started his pain. Pt also notes that when he has had it previously, it always went away rather quickly, but this has been around for 7 months now. Pt notes the pain has not influenced most of his daily activities, however he has cut back on his weightlifting in an effort to not aggravate it. Prior Functional Status Baseline Function- ADL's Independent Baseline Function- Mobility Independent Current Functional Impairments (Reported) Functional Limitations- Recreation/ Limits weightlifting Hobbies PT-OP-C Subjective Start: 08/17/18 11:29 Freq: Status: Active Protocol: Document 09/13/18 15:04 LRN (Rec: 09/13/18 15:54 LRN [id number]) OP-PT Subjective Patient Comments Patient Comments 80% improved. PT-OP-F Manual Assessment Start: 08/17/18 11:29 Freq: Status: Active Protocol: Document 08/17/18 09:00 DCW (Rec: 08/17/18 12:01 DCW [id number]) Manual Assessments Soft Tissue Assessment Soft Tissue Mobility Assessment With palpation, left lateral epicondyle and surrounding has feeling of mild edema/ inflammation underneath the surface. Pt reports tenderness at location of lateral epicondyle, common extensor tendon, and proximal wrist extensors. PT-OP-K Range of Motion Start: 08/17/18 11:29 Freq: Status: Active Protocol: Document 08/17/18 09:00 DCW (Rec: 08/17/18 12:01 DCW [id number]) Elbow/Forearm Range of Motion Elbow/Forearm Left Active Elbow/Forearm ROM WFL Yes ROM Testing Position Sitting Wrist Goniometric Range of Motion Wrist Left Wrist ROM WFL Yes PT-OP-L Special Tests Start: 08/17/18 11:29 Freq: Status: Active Protocol: Document 08/17/18 09:00 DCW (Rec: 08/17/18 12:01 DCW [id number]) Special Tests Elbow Special Tests Lateral Epicondylitis Flexed Test Results Negative Lateral Epicondylitis Extended Test Results Positive Left PT-OP-M Strength Start: 08/17/18 11:29 Freq: Status: Active Protocol: Document 08/17/18 09:00 DCW (Rec: 08/17/18 12:01 DCW [id number]) Wrist Strength Wrist Manual Muscle Testing Left Comments Strength WNL, mild pain with resisted supination Hand Geospatial Analyst/Pinch Strength Hand Strength Left Comments Dynamometer out for service, test upon return. PT-OP-Q Treatments Start: 08/17/18 11:29 Freq: Status: Active Protocol: Document 09/13/18 15:04 LRN (Rec: 09/13/18 15:54 LRN [id number]) Therapeutic Exercises Sitting Exercises Tricep Press Sitting Exercise Name Tricep press Side left Resistance 5# Reps/Minutes 5x Comments Stopped due to pain. wrist extension str Sitting Exercise Name wrist extension str Side left Resistance Red -Band Reps/Minutes 60 sec Comments Elbow flexed & extended 4-way wrist flexion Sitting Exercise Name 4-way wrist flexion Side left Resistance Lev 3 T-Band Pronation/Supination Sitting Exercise Name Forearm pronation/supination Side left Resistance 1# on hammer shaft Equipment Used Hammer Reps/Minutes 1' x Standing Exercises Elbow ext Standing Exercise Name Elbow ext with shoulder @ 90 deg's flex. Side left Resistance Lev 3 T-Band Reps/Minutes 15x Manual Therapy Treatment Soft Tissue Mobilization 1 Body Location left forearm Mobilization Type Oscillations Strumming Intensity/Depth Moderate Body Position Sitting PT-OP-R Modalities Start: 08/17/18 11:29 Freq: Status: Active Protocol: Document 09/13/18 15:04 LRN (Rec: 09/13/18 15:54 LRN [id number]) Ultrasound Therapy Treatment Left Lateral Elbow Treatment Duration (minutes) 8 Patient Position Sitting Coupling Medium Ultrasound Gel Applicator Size (cm2) 5 Frequency Setting (mHz) 3 Duty Cycle 50% Intensity Setting (w/cm2) 1.0 PT-OP-T Assessment and Plan Start: 08/17/18 11:29 Freq: Status: Active Protocol: Document 09/13/18 15:04 LRN (Rec: 09/13/18 15:54 LRN [id number]) Physical Therapy Assessment Assessment Summary Assessment Tender at Lateral epicondyle, but tenderness is lessening. Pt seems to have trouble performing pure wrist ext, allowing elbow flexion. Physical Therapy Plan Frequency and Duration Frequency of Treatment 2x/Week Duration of Treatment 2 months Plan of Care Start Date 08/17/18 Plan of Care End Date 10/18/18 Therapeutic Interventions Therapeutic Interventions Home Exercise Program Joint Mobilizations Manual Therapy Patient/Caregiver Education Self-Care/Home Management Soft Tissue Mobilization Taping Therapeutic Activities Therapeutic Exercises Modalities Cold Pack/Ice Massage Electric Stimulation Hot Packs Iontophoresis Ultrasound Other Therapeutic Interventions Iontophoresis /c Dexamethasone , 4 mg/mL Next Visit Focus/Plan Next Note Type Treatment Note Next Visit Plan Check for return of POC for initiation of ionto. US, STM, strengthening, Ionto if signed POC is returned.
--- NOTE | 2018-09-17 12:38 | PT.OTN ---
Current Diagnoses Pain in left elbow (09/17/18) Lateral epicondylitis, left elbow (09/17/18) Physical Therapy Treatment Note PT-OP-A Visit Information Start: 08/17/18 11:29 Freq: Status: Active Protocol: Document 09/17/18 12:00 DCW (Rec: 09/17/18 12:38 DCW [id number]) Out-Patient Physical Therapy Visit Information Visit Information Visit Type Treatment Note Visit Start Time 12:00 Visit Stop Time 12:35 Total Visit Minutes 35 Visit Number 6 Number of NETWORKS COMPUTER CONSULTANT Visits 0 Evaluation Information Evaluation Date 08/17/18 PT-OP-B Current Condition Start: 08/17/18 11:29 Freq: Status: Active Protocol: Document 08/17/18 09:00 DCW (Rec: 08/17/18 12:01 DCW [id number]) Current Condition History of Current Condition Onset Date 7 months Current Complaints left elbow pain History of Current Condition Pt is a 68 year old male presenting with a 6-7 month history of left lateral elbow pain. 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 This time, however, he is unaware of what may have started his pain. Pt also notes that when he has had it previously, it always went away rather quickly, but this has been around for 7 months now. Pt notes the pain has not influenced most of his daily activities, however he has cut back on his weightlifting in an effort to not aggravate it. Prior Functional Status Baseline Function- ADL's Independent Baseline Function- Mobility Independent Current Functional Impairments (Reported) Functional Limitations- Recreation/ Limits weightlifting Hobbies PT-OP-C Subjective Start: 08/17/18 11:29 Freq: Status: Active Protocol: Document 09/17/18 12:00 DCW (Rec: 09/17/18 12:38 DCW [id number]) OP-PT Subjective Patient Comments Patient Comments I'm almost back to 100%. I feel like what you guys are doing is working. PT-OP-F Manual Assessment Start: 08/17/18 11:29 Freq: Status: Active Protocol: Document 08/17/18 09:00 DCW (Rec: 08/17/18 12:01 DCW [id number]) Manual Assessments Soft Tissue Assessment Soft Tissue Mobility Assessment With palpation, left lateral epicondyle and surrounding has feeling of mild edema/ inflammation underneath the surface. Pt reports tenderness at location of lateral epicondyle, common extensor tendon, and proximal wrist extensors. PT-OP-K Range of Motion Start: 08/17/18 11:29 Freq: Status: Active Protocol: Document 08/17/18 09:00 DCW (Rec: 08/17/18 12:01 DCW [id number]) Elbow/Forearm Range of Motion Elbow/Forearm Left Active Elbow/Forearm ROM WFL Yes ROM Testing Position Sitting Wrist Goniometric Range of Motion Wrist Left Wrist ROM WFL Yes PT-OP-L Special Tests Start: 08/17/18 11:29 Freq: Status: Active Protocol: Document 08/17/18 09:00 DCW (Rec: 08/17/18 12:01 DCW [id number]) Special Tests Elbow Special Tests Lateral Epicondylitis Flexed Test Results Negative Lateral Epicondylitis Extended Test Results Positive Left PT-OP-M Strength Start: 08/17/18 11:29 Freq: Status: Active Protocol: Document 08/17/18 09:00 DCW (Rec: 08/17/18 12:01 DCW [id number]) Wrist Strength Wrist Manual Muscle Testing Left Comments Strength WNL, mild pain with resisted supination Hand Sergeant Of Officers/Pinch Strength Hand Strength Left Comments Dynamometer out for service, test upon return. PT-OP-Q Treatments Start: 08/17/18 11:29 Freq: Status: Active Protocol: Document 09/17/18 12:00 DCW (Rec: 09/17/18 12:38 DCW [id number]) Therapeutic Exercises Sitting Exercises 4-way wrist flexion Sitting Exercise Name 4-way wrist flexion Side left Resistance Lev 3 T-Band Pronation/Supination Sitting Exercise Name Forearm pronation/supination Side left Resistance 2# on hammer shaft Equipment Used Hammer Reps/Minutes 1' x Manual Therapy Treatment Soft Tissue Mobilization 1 Body Location left forearm Mobilization Type Cross-Friction Oscillations Strumming Intensity/Depth Moderate Body Position Sitting PT-OP-R Modalities Start: 08/17/18 11:29 Freq: Status: Active Protocol: Document 09/17/18 12:00 DCW (Rec: 08/12/19 12:38 DCW [id number]) Ultrasound Therapy Treatment Left Lateral Elbow Treatment Duration (minutes) 8 Patient Position Sitting Coupling Medium Ultrasound Gel Applicator Size (cm2) 5 Frequency Setting (mHz) 3 Duty Cycle 50% Intensity Setting (w/cm2) 1.0 PT-OP-T Assessment and Plan Start: 08/17/18 11:29 Freq: Status: Active Protocol: Document 09/17/18 12:00 DCW (Rec: 09/17/18 12:38 DCW [id number]) Physical Therapy Assessment Goals Two Impairment Pt restraict with his weightlifting routine due to elbow pain Account Support Specialist Goal (LTG) Pt to return to full routine with no limitations and no increased pain. LTG Duration 10/18/18 One Impairment Pt does not have an appropriate home exercise program Short Term Goal (STG) Pt to be independent and compliant with an appropriate HEP STG Duration 09/17/18 Assessment Summary Assessment Pt making great progress, likely discharge following his next visit. Physical Therapy Plan Frequency and Duration Frequency of Treatment 2x/Week Duration of Treatment 2 months Plan of Care Start Date 08/17/18 Plan of Care End Date 10/18/18 Therapeutic Interventions Therapeutic Interventions Home Exercise Program Joint Mobilizations Manual Therapy Patient/Caregiver Education Self-Care/Home Management Soft Tissue Mobilization Taping Therapeutic Activities Therapeutic Exercises Modalities Cold Pack/Ice Massage Electric Stimulation Hot Packs Iontophoresis Ultrasound Other Therapeutic Interventions Iontophoresis /c Dexamethasone , 4 mg/mL Next Visit Focus/Plan Next Note Type Discharge Summary Next Visit Plan Check for return of POC for initiation of ionto. US, STM, strengthening, Ionto if signed POC is returned.
--- NOTE | 2018-09-26 14:12 | PT.OPDS ---
Current Diagnoses Pain in left elbow (09/17/18) Lateral epicondylitis, left elbow (09/17/18) Provider Visit Care Team Role Provider Type Dia Russell DO Primary Care Provider Physician Specialty: Family Practice Address: [address] [place] [address], [address], [address] Email: [email or web address] Herman Fernandes MD Attending Provider Physician Specialty: Orthopedic Surgery Address: [address] [place] [address], [id number] Email: [email or web address] Visit Number Visit Number 6 Discharge Summary PT-OP-B Current Condition Start: 08/17/18 11:29 Freq: Status: Active Protocol: Document 08/17/18 09:00 DCW (Rec: 08/17/18 12:01 DCW [id number]) Current Condition History of Current Condition Onset Date 7 months Current Complaints left elbow pain History of Current Condition Pt is a 68 year old male presenting with a 6-7 month history of left lateral elbow pain. 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 This time, however, he is unaware of what may have started his pain. Pt also notes that when he has had it previously, it always went away rather quickly, but this has been around for 7 months now. Pt notes the pain has not influenced most of his daily activities, however he has cut back on his weightlifting in an effort to not aggravate it. Prior Functional Status Baseline Function- ADL's Independent Baseline Function- Mobility Independent Current Functional Impairments (Reported) Functional Limitations- Recreation/ Limits weightlifting Hobbies PT-OP-C Subjective Start: 08/17/18 11:29 Freq: Status: Active Protocol: Document 09/17/18 12:00 DCW (Rec: 09/17/18 12:38 DCW [id number]) OP-PT Subjective Patient Comments Patient Comments I'm almost back to 100%. I feel like what you guys are doing is working. PT-OP-F Manual Assessment Start: 08/17/18 11:29 Freq: Status: Active Protocol: Document 08/17/18 09:00 DCW (Rec: 08/17/18 12:01 DC [id number]) Manual Assessments Soft Tissue Assessment Soft Tissue Mobility Assessment With palpation, left lateral epicondyle and surrounding has feeling of mild edema/ inflammation underneath the surface. Pt reports tenderness at location of lateral epicondyle, common extensor tendon, and proximal wrist extensors. PT-OP-K Range of Motion Start: 08/17/18 11:29 Freq: Status: Active Protocol: Document 08/17/18 09:00 DCW (Rec: 08/17/18 12:01 DC [id number]) Elbow/Forearm Range of Motion Elbow/Forearm Left Active Elbow/Forearm ROM WFL Yes ROM Testing Position Sitting Wrist Goniometric Range of Motion Wrist Left Wrist ROM WFL Yes PT-OP-L Special Tests Start: 08/17/18 11:29 Freq: Status: Active Protocol: Document 08/17/18 09:00 DCW (Rec: 08/17/18 12:01 [facility] [id number]) Special Tests Elbow Special Tests Lateral Epicondylitis Flexed Test Results Negative Lateral Epicondylitis Extended Test Results Positive Left PT-OP-M Strength Start: 08/17/18 11:29 Freq: Status: Active Protocol: Document 08/17/18 09:00 DCW (Rec: 08/17/18 12:01 DC [id number]) Wrist Strength Wrist Manual Muscle Testing Left Comments Strength WNL, mild pain with resisted supination Hand Electrotyper/Pinch Strength Hand Strength Left Comments Dynamometer out for service, test upon return. PT-OP-T Assessment and Plan Start: 08/17/18 11:29 Freq: Status: Active Protocol: Document 09/26/18 14:10 DCW (Rec: 09/26/18 14:12 DC [id number]) Physical Therapy Assessment Goals Two Impairment Pt restraict with his weightlifting routine due to elbow pain Senior Living Goal (LTG) Pt to return to full routine with no limitations and no increased pain. LTG Duration 10/18/18 One Impairment Pt does not have an appropriate home exercise program Short Term Goal (STG) Pt to be independent and compliant with an appropriate HEP STG Duration 09/17/18 Assessment Summary Assessment Pt phoned the clinic, reported he would like to cancel his remaining appointments because he feels all healed up. Physical Therapy Plan Frequency and Duration Frequency of Treatment 2x/Week Duration of Treatment 2 months Plan of Care Start Date 08/17/18 Plan of Care End Date 10/18/18 Therapeutic Interventions Therapeutic Interventions Home Exercise Program Joint Mobilizations Manual Therapy Patient/Caregiver Education Self-Care/Home Management Soft Tissue Mobilization Taping Therapeutic Activities Therapeutic Exercises Modalities Cold Pack/Ice Massage Electric Stimulation Hot Packs Iontophoresis Ultrasound Other Therapeutic Interventions Iontophoresis /c Dexamethasone , 4 mg/mL Next Visit Focus/Plan Next Note Type Discharge Summary Next Visit Plan Check for return of POC for initiation of ionto. US, STM, strengthening, Ionto if signed POC is returned.
== END 2018-09-28 10:00 | disposition home or self-care (01) ==
LOC: PHYS 12:00
PROVIDERS: PCP Family Medicine; Visit Provider Orthopaedic Surgery
DX: M77.12 Lateral epicondylitis, left elbow (principal); M25.522 Pain in left elbow
CPT/HCPCS: 97035; 97110; 97140; 97161

== ENCOUNTER → 2018-11-29 08:45 | Outpatient (CLI) | payer OTHER, SELFPAY ==
[2018-11-29 09:33] LABS: Hemoglobin A1C% w Est Avg Glu 5.6 % (4.0-6.0)
[2018-11-29 10:02] LABS: Alanine Aminotransferase 18 IU/L (21-72); Albumin 4.1 g/dL (3.5-5.0); Albumin Globulin Ratio 1.5 (1.0-2.8); Alkaline Phosphatase 52 U/L (38-126); Aspartate Aminotransferase 25 IU/L (17-59); BUN Creatinine Ratio 15.7 (6-22); Bilirubin Total 0.9 mg/dL (0.2-1.3); Blood Urea Nitrogen 11 mg/dL (9-20); Calcium 9.2 mg/dL (8.4-10.2); Carbon Dioxide 23 mmol/L (22-32); Chloride 108 mmol/L (98-107); Cholesterol 205 mg/dL (140-199); Estimated Glomerular Filt Rate > 60.0 mL/min (>60); Globulin 2.8 g/dL (1.7-4.1); Glucose 138 mg/dL (80-110); HDL Cholesterol 41 mg/dL (40-60); HEMOLYSIS < 15 (0-50); LDL Cholesterol Calculated 139 mg/dL (<100); Potassium 4.2 mmol/L (3.4-5.1); Sodium 140 mmol/L (137-145); Total Protein 6.9 g/dL (6.3-8.2); Triglycerides 127 mg/dL (35-150)
== END ==
PROVIDERS: PCP Family Medicine; Visit Provider Family Medicine
DX: E11.9 Type 2 diabetes mellitus without complications (principal); E78.5 Hyperlipidemia, unspecified; I10 Essential (primary) hypertension
CPT/HCPCS: 36415; 80053; 80061; 83036

== ENCOUNTER → 2019-02-05 14:51 | Outpatient (CLI) | payer OTHER, SELFPAY ==
[2019-02-05 15:21] LABS: Add Manual Diff / Slide Review NO; Basophils Absolute Auto 0 /uL (0-100); Basophils Percent Auto 0.7 % (0-2); Eosinophils Absolute Auto 300 /uL (0-450); Eosinophils Percent Auto 4.5 % (2-4); Hematocrit 44.3 % (41-53); Hemoglobin 15.5 g/dL (13.5-17.5); Lymphocytes Absolute Auto 2200 /uL (1100-4500); Lymphocytes Percent Auto 36.7 % (25-40); Mean Corpuscular Hemoglobin 32.9 PG (26-34); Mean Corpuscular Volume 94.1 fL (80-100); Monocytes Absolute Auto 400 /uL (0-900); Neutrophils Absolute Auto 3000 /uL (1500-7000); Neutrophils Percent Auto 51.1 % (50-75); Platelet Count 161 X10^3/uL (150-400); Red Blood Cell Count 4.71 X10^6/uL (4.5-5.9); Red Cell Distribution Width 13.2 % (11.6-14.8)
[2019-02-05 16:00] LABS: Alanine Aminotransferase 52 IU/L (<50); Albumin 4.8 g/dL (3.5-5.0); Albumin Globulin Ratio 1.8 (1.0-2.8); Alkaline Phosphatase 51 U/L (38-126); Aspartate Aminotransferase 48 IU/L (17-59); BUN Creatinine Ratio 15.7 (6-22); Bilirubin Total 0.7 mg/dL (0.2-1.3); Blood Urea Nitrogen 11 mg/dL (9-20); Calcium 10.3 mg/dL (8.4-10.2); Carbon Dioxide 28 mmol/L (22-32); Chloride 101 mmol/L (98-107); Estimated Glomerular Filt Rate > 60.0 mL/min (>60); Globulin 2.6 g/dL (1.7-4.1); Glucose 96 mg/dL (80-110); HEMOLYSIS < 15 (0-50); Potassium 4.8 mmol/L (3.4-5.1); Sodium 140 mmol/L (137-145); Total Protein 7.4 g/dL (6.3-8.2)
[2019-02-05 16:30] LABS: Prostate Specific Antigen Scrn 0.794 ng/mL (0.1-4.0)
== END ==
PROVIDERS: PCP Family Medicine; Visit Provider Nurse Practitioner
DX: R36.1 Hematospermia (principal); Z12.5 Encounter for screening for malignant neoplasm of prostate
CPT/HCPCS: 36415; 80053; 85025; G0103

== ENCOUNTER 2019-09-05 07:28 | Emergency (ER) | payer MEDICARE, OTHER, SELFPAY ==
[2019-09-05 07:36] VITALS: BP 157/74; PULSE 52; RESP 16; TEMP 36.4; O2SAT 95; BMI 25.7
--- NOTE | 2019-09-05 07:59 | ED.ABDPAIN ---
HPI - Abdominal Pain General Chief Complaint: Urogenital-Male Stated Complaint: hx of kidney stones/rt sided back pain today Time Seen by Provider: 09/05/19 07:40 Source: patient Mode of arrival: Ambulatory Limitations: no limitations History of Present Illness HPI narrative: Patient complains of right flank pain that radiates to the front in at times to the right testicle. No urinary urgency or hematuria. Patient denies any nausea. Had diaphoresis. Pain 08/15. Patient states feels like kidney stone had last year. Did pass the stone last year did not require urology services. Denies any recent illness. No chest pain. MD complaint: abdominal pain and flank pain Related Data Home Medications Medication Instructions Recorded Confirmed Fish Oil (#FISH OIL) #0 09/07/10 02/05/19 Previous Rx's Medication Instructions Recorded lovastatin 40 mg tablet 40 mg PO DAILY #90 tab 11/06/18 rosuvastatin 10 mg tablet 10 mg PO DAILY #90 tab 11/09/18 hydrocodone-acetaminophen 1 tab PO Q4-6H PRN #14 tab 09/05/19 ondansetron 4 mg PO Q8H PRN #10 tab 09/05/19 tamsulosin [Flomax] 0.4 mg PO BEDTIME #7 cap 09/05/19 Allergies Allergy/AdvReac Type Severity Reaction Status Date / Time metformin [METFORMIN] Allergy Unknown Verified 02/05/19 14:02 Review of Systems Review of Systems Narrative: GENERAL: Denies chills, fatigue, malaise, fever, had sweating HEENT: Denies sinus pain, ear pain, sore throat, difficulty swallowing, dizziness. RESPIRATORY: Denies dyspnea, cough, wheezing, hemoptysis, sputum. CARDIOVASCULAR: Denies chest pain, palpitations, orthopnea, edema, GASTROINTESTINAL: Denies nausea, vomiting, diarrhea, constipation, melena. Complains of right lower quadrant and right flank pain : Denies dysuria, frequency, incontinence, hematuria, urinary retention. MUSCULOSKELETAL: denies weakness, joint pain, or bony pain SKIN: Denies rash, skin lesions, or other NEUROLOGIC: Denies weakness, headache, numbness, change in speech, confusion, seizures, incoordination. PSYCHIATRIC: No concerning psychosocial issues. ROS Unobtainable: All systems reviewed & are unremarkable except as noted in HPI and below Patient History Medical History Chickenpox (Resolved 1956) Colon polyps (Resolved Unknown) Hearing loss (Chronic 1996) History of tinnitus (Chronic 1994) Hyperlipidemia (Chronic Unknown) Knee pain (Chronic Unknown) Measles (Resolved 1954) Type 2 diabetes mellitus (Chronic ~2015) Surgical History History of tonsillectomy Family History Brother Age: 60 Diabetes mellitus Social History Smoking Status: Former smoker Smoking Status: Former smoker Exam Narrative Exam Narrative: GENERAL: patient appears stated age. Well-nourished, well-developed patient, in no distress, not toxic HEAD: Atraumatic. Normocephalic. EYES: Pupils equal round and reactive. Extraocular motions intact. No scleral icterus. No injection or drainage. ENT: Nose without bleeding, purulent drainage. Throat without erythema, tonsillar hypertrophy or exudate. Airway patent. NECK: Trachea midline. Non tender CARDIOVASCULAR: Regular rate and rhythm without murmurs, gallops, or rubs. RESPIRATORY: Clear to auscultation. Breath sounds equal bilaterally. No wheezes, rales, or rhonchi. GASTROINTESTINAL: Abdomen soft, non-tender, nondistended. EXTREMITIES: No edema or joint tenderness. BACK: Nontender without deformity or crepitance. No flank tenderness. NEURO: AOx3. SKIN: No rash or erythema of visible areas PSYCH: Not anxious, is cooperative Initial Vital Signs Initial Vital Signs: Vital Signs Temperature 97.6 F 09/05/19 07:36 Pulse Rate 52 L 09/05/19 07:36 Respiratory Rate 16 09/05/19 07:36 Blood Pressure 157/74 H 09/05/19 07:36 Pulse Oximetry 95 09/05/19 07:36 Course Course Course Narrative: Patient pain-free at time of discharge Orders Ordered: Discontinued Medications Sodium Chloride (Normal Saline 0.9%) 1,000 mls @ 1,000 mls/hr IV BOLUS ONE Stop: 09/05/19 08:56 Last Infusion: 09/05/19 08:53 Dose: 0 mls/hr Documented by: Admin: 09/05/19 08:03 Dose: 1,000 mls/hr Documented by: SRI Ketorolac Tromethamine (Toradol) 30 mg IV NOW ONE Stop: 09/05/19 08:39 Last Admin: 09/05/19 08:49 Dose: 30 mg Documented by: JOSE Ondansetron HCl (Zofran) 4 mg IV NOW ONE Stop: 09/05/19 08:39 Last Admin: 09/05/19 08:48 Dose: 4 mg Documented by: JOSE Tamsulosin HCl (Flomax) 0.4 mg PO NOW ONE Stop: 09/05/19 08:39 Last Admin: 09/05/19 08:48 Dose: 0.4 mg Documented by: JOSE Reevaluation(s) Reevaluation #1: Patient pain free after Toradol. Has been able give urine specimen. He desires discharge home. Time: 09:35 Vital Signs Vital signs: Vital Signs - 8 hr 09/05/19 07:36 09/05/19 08:54 Temperature 97.6 F Pulse Rate 52 L 62 Respiratory Rate 16 21 Blood Pressure 157/74 H Pulse Oximetry 95 100 MDM - Abdominal Pain Differential Diagnosis Differential diagnosis: Likely acute appendicitis, calculus of kidney, diverticulitis and small bowel obstruction Lab Data Attestation: I reviewed the patient's lab results. Result diagrams: 09/05/19 07:35 09/05/19 07:35 Labs: Lab Results 09/05/19 09/05/19 Range/Units 07:35 07:35 WBC 6.2 (4.5-11.0) X10^3/uL RBC 4.44 L (4.5-5.9) X10^6/uL Hgb 14.9 (13.5-17.5) g/dL Hct 42.1 (41-53) % MCV 94.7 (80-100) fL MCH 33.5 (26-34) PG MCHC 35.4 (30-36) % RDW 12.5 (11.6-14.8) % Plt Count 162 (150-400) X10^3/uL Neut % (Auto) 52.7 (50-75) % Lymph % (Auto) 35.1 (25-40) % [place] % (Auto) 6.3 (3-14) % Eos % (Auto) 4.9 H (2-4) % Baso % (Auto) 1.0 (0-2) % Neut # (Auto) 3300 (0758-4142) /uL Lymph # (Auto) 2200 (7878-7218) /uL [place] # (Auto) 400 (0-900) /uL Eos # (Auto) 300 (0-450) /uL Baso # (Auto) 100 (0-100) /uL Sodium 138 (137-145) mmol/L Potassium 4.0 (3.4-5.1) mmol/L Chloride 106 (98-107) mmol/L Carbon Dioxide 23 (22-32) mmol/L BUN 17 (9-20) mg/dL Creatinine 0.68 (0.66-1.25) mg/dL Estimated GFR > 60.0 (>60) mL/min BUN/Creatinine Ratio 25.0 H (6-22) Glucose 228 H (80-110) mg/dL Calcium 9.4 (8.4-10.2) mg/dL Total Bilirubin 1.1 (0.2-1.3) mg/dL AST 34 (17-59) IU/L ALT 33 (<50) IU/L Alkaline Phosphatase 55 (38-126) U/L Total Protein 7.0 (6.3-8.2) g/dL Albumin 4.2 (3.5-5.0) g/dL Globulin 2.8 (1.7-4.1) g/dL Albumin/Globulin Ratio 1.5 (1.0-2.8) Lipase 62 (23-300) U/L Point of care testing: Urine Dip Bedside Urine Glucose 100 mg/dl Bedside Urine Bilirubin - Negative Bedside Urine Ketone + 15 Urine Specific [place] 1.025 Bedside Urine Occult Blood +++ Bedside Urine pH 6.0 Bedside Urine Protein +/- 15 Bedside Urine Urobilinogen - Negative Bedside Urine Nitrite - Negative Bedside Urine Leukocytes - Negative Esterase Imaging Data CT scan - abdomen/pelvis: Radiologist's Impression: [address] [address] [address] Scan Report Signed Patient: Bob Covington BMR#: [id number] : 1950Acct:[id number] Age/Sex: 69 / MDate of Service: 09/05/19 Loc: ED Accession Number: [id number] Procedure: CT abdomen pelvis wo con Ordering Provider: Jorge Mendiola MD PROCEDURE: CT ABDOMEN PELVIS WO CON INDICATIONS: right flank pain TECHNIQUE: Noncontrast 5 mm thick sections acquired from the diaphragms to the symphysis. 5 mm coronal and sagittal reformats were then performed. For radiation dose reduction, the following was used: automated exposure control, adjustment of mA and/or kV according to patient size. COMPARISON: None. FINDINGS: Image quality: Excellent. ABDOMEN: Lung bases: Lung bases are clear. Heart size is normal. Coronary artery calcifications. Solid organs: Liver is normal in size. Gallbladder is unremarkable . Pancreas is normal in contours. Spleen is normal in size. No adrenal nodules Right kidney: Mild hydronephrosis. 3 nonobstructing stones, the largest of which measures approximately 4 mm. Right ureter: Obstructing stone at the level of S1 measuring approximately 7 mm in maximum diameter with resultant mild hydroureter. Left kidney: 1 mm nonobstructing upper pole stone. No hydronephrosis. Left ureter: Unremarkable Peritoneum and bowel: Unenhanced bowel loops demonstrate normal wall thickness and caliber. No free fluid or air. Nodes and vessels: No retroperitoneal or mesenteric adenopathy by size criteria. Aorta and inferior vena cava are normal in caliber. Aortic atherosclerotic calcifications. Miscellaneous: No ventral hernias. PELVIS: Genitourinary: Bladder wall thickness is normal. No bladder stones. Miscellaneous: No inguinal hernias or adenopathy. Bones: No suspicious bony lesions. No vertebral body compression fractures. Diffuse degenerative change. Lumbar canal stenosis at L2-L3, L3-L4, and L4-L5. IMPRESSION: 1. A 7 mm stone at the level of S1 obstructs the old right ureter resulting in mild right hydronephrosis. 2. Bilateral nephrolithiasis. 3. Coronary artery disease 4. Multilevel lumbar canal stenosis. Dictated by: Roque Snow M.D. on 09/05/2019 at 8:14 Approved by: Roque Snow M.D. on 09/05/2019 at 8:19 MDM Narrative Medical decision making narrative: Appropriate for discharge home. No leukocytosis no fever no signs infection in the urine. No antibiotics indicated. Pain-free at time of discharge. Patient is driving. Spoke with patient no driving with prescribed pain medication. Discharge Plan Departure Patient Disposition: Home Clinical Impression: Right ureteral stone Discharge Date/Time: 09/05/19 09:47 Instructions: DI for Kidney Stones Activity Restrictions/Additional Instructions: Return if worse or if any questions or concerns. Keep well hydrated. Drink plenty of water. Call provided urology office today for office recheck in a week. Strain/filter urine for catching kidney stone to provide to urology office. Prescriptions: New tamsulosin [Flomax] 0.4 mg capsule 0.4 mg PO BEDTIME Qty: 7 RF: 0 ondansetron 4 mg tablet,disintegrating 4 mg PO Q8H PRN (Reason: nausea and vomiting) Qty: 10 RF: 0 hydrocodone-acetaminophen 5-325 mg tablet 1 tab PO Q4-6H PRN (Reason: pain) Qty: 14 RF: 0 No Action Fish Oil (#FISH OIL) Qty: 0 RF: 0 lovastatin 40 mg tablet 40 mg PO DAILY Qty: 90 RF: 0 rosuvastatin [Crestor] 10 mg tablet 10 mg PO DAILY Qty: 90 RF: 0 Referrals: Jeannette Michaels MD [Primary Care Provider] - Rosa Quiroz MD [Physician] -
[2019-09-05] MEDS: SODIUM CHLORIDE 0.9% 1,000 ML 1000 ML IV (08:03)
--- NOTE | 2019-09-05 08:06 | DI.CT.S_ITS ---
PROCEDURE: CT ABDOMEN PELVIS WO CON INDICATIONS: right flank pain TECHNIQUE: Noncontrast 5 mm thick sections acquired from the diaphragms to the symphysis. 5 mm coronal and sagittal reformats were then performed. For radiation dose reduction, the following was used: automated exposure control, adjustment of mA and/or kV according to patient size. COMPARISON: None. FINDINGS: Image quality: Excellent. ABDOMEN: Lung bases: Lung bases are clear. Heart size is normal. Coronary artery calcifications. Solid organs: Liver is normal in size. Gallbladder is unremarkable . Pancreas is normal in contours. Spleen is normal in size. No adrenal nodules Right kidney: Mild hydronephrosis. 3 nonobstructing stones, the largest of which measures approximately 4 mm. Right ureter: Obstructing stone at the level of S1 measuring approximately 7 mm in maximum diameter with resultant mild hydroureter. Left kidney: 1 mm nonobstructing upper pole stone. No hydronephrosis. Left ureter: Unremarkable Peritoneum and bowel: Unenhanced bowel loops demonstrate normal wall thickness and caliber. No free fluid or air. Nodes and vessels: No retroperitoneal or mesenteric adenopathy by size criteria. Aorta and inferior vena cava are normal in caliber. Aortic atherosclerotic calcifications. Miscellaneous: No ventral hernias. PELVIS: Genitourinary: Bladder wall thickness is normal. No bladder stones. Miscellaneous: No inguinal hernias or adenopathy. Bones: No suspicious bony lesions. No vertebral body compression fractures. Diffuse degenerative change. Lumbar canal stenosis at L2-L3, L3-L4, and L4-L5. IMPRESSION: 1. A 7 mm stone at the level of S1 obstructs the old right ureter resulting in mild right hydronephrosis. 2. Bilateral nephrolithiasis. 3. Coronary artery disease 4. Multilevel lumbar canal stenosis. Dictated by: Roque Snow M.D. on 09/05/2019 at 8:14 Approved by: Roque Snow M.D. on 09/05/2019 at 8:19
[2019-09-05 08:09] LABS: Add Manual Diff / Slide Review NO; Basophils Absolute Auto 100 /uL (0-100); Eosinophils Absolute Auto 300 /uL (0-450); Eosinophils Percent Auto 4.9 % (2-4); Hematocrit 42.1 % (41-53); Hemoglobin 14.9 g/dL (13.5-17.5); Lymphocytes Absolute Auto 2200 /uL (1100-4500); Lymphocytes Percent Auto 35.1 % (25-40); Mean Corpuscular HGB Conc 35.4 % (30-36); Mean Corpuscular Hemoglobin 33.5 PG (26-34); Mean Corpuscular Volume 94.7 fL (80-100); Monocytes Absolute Auto 400 /uL (0-900); Monocytes Percent Auto 6.3 % (3-14); Neutrophils Absolute Auto 3300 /uL (1500-7000); Neutrophils Percent Auto 52.7 % (50-75); Platelet Count 162 X10^3/uL (150-400); Red Blood Cell Count 4.44 X10^6/uL (4.5-5.9); Red Cell Distribution Width 12.5 % (11.6-14.8); White Blood Cell Count 6.2 X10^3/uL (4.5-11.0)
--- NOTE | 2019-09-05 08:09 | PC.NURSE ---
Patient reports waking with right flank pain. Feels very similar to last kidney stone. Patient states he took a pain medication this morning that his had, but unaware of what it was. Patient denies visualizing blood in his urine but states he feels like he may not be fully emptying his bladder.
[2019-09-05 08:10] LABS: Alanine Aminotransferase 33 IU/L (<50); Albumin 4.2 g/dL (3.5-5.0); Albumin Globulin Ratio 1.5 (1.0-2.8); Alkaline Phosphatase 55 U/L (38-126); Aspartate Aminotransferase 34 IU/L (17-59); Bilirubin Total 1.1 mg/dL (0.2-1.3); Blood Urea Nitrogen 17 mg/dL (9-20); Calcium 9.4 mg/dL (8.4-10.2); Carbon Dioxide 23 mmol/L (22-32); Chloride 106 mmol/L (98-107); Estimated Glomerular Filt Rate > 60.0 mL/min (>60); Globulin 2.8 g/dL (1.7-4.1); Glucose 228 mg/dL (80-110); HEMOLYSIS < 15 (0-50); Lipase 62 U/L (23-300); Sodium 138 mmol/L (137-145)
[2019-09-05 08:30] VITALS: BP 162/79
[2019-09-05] MEDS: ONDANSETRON 4 MG/2 ML INJ IV (08:48)
[2019-09-05] MEDS: TAMSULOSIN 0.4 MG CAPSULE PO (08:48)
[2019-09-05] MEDS: KETOROLAC 60 MG/2 ML VIAL 30 MG IV (08:49)
[2019-09-05 08:54] VITALS: PULSE 62; RESP 21; O2SAT 100
[2019-09-05 09:02] VITALS: PULSE 57; RESP 13; O2SAT 98
[2019-09-05 09:30] VITALS: PULSE 59; RESP 18; O2SAT 97
[2019-09-05 09:41] VITALS: BP 162/77; PULSE 55; RESP 19; O2SAT 97
== END 2019-09-05 09:47 | disposition home or self-care (01) ==
PROVIDERS: Emergency Provider Emergency Medicine; PCP Student in an Organized Health Care Education/Training Program
DX: N20.1 Calculus of ureter (principal); Z87.442 Personal history of urinary calculi
CPT/HCPCS: 36415; 74176; 80053; 81003; 83690; 85025; 96361; 96374; 96375; 99284; J1885; J2405

== ENCOUNTER 2019-10-24 08:56 | Emergency (ER) | payer MEDICARE, OTHER, SELFPAY ==
[2019-10-24 09:00] VITALS: BP 168/82; PULSE 66; RESP 14; TEMP 36.6; O2SAT 97; BMI 26.4
--- NOTE | 2019-10-24 09:07 | PC.NURSE ---
pt able to urinate,recent hx of kidney stones. Pt believes he has another kidney stone
--- NOTE | 2019-10-24 09:12 | ED.MALEGU ---
HPI - Male Genitourinary General Chief complaint: Urogenital-Male Stated complaint: thinks he has a kidney stone Time Seen by Provider: 10/24/19 09:05 Source: patient Mode of arrival: Ambulatory Limitations: no limitations History of Present Illness HPI Narrative: Patient is a 69-year-old male with history of kidney stones presenting with right flank pain which started at 12:30 p.m. last evening. He took a pain pill which seem to help mildly. Pain starts in the right flank and has some radiation to his groin for similar to previous kidney stones. He actually had a kidney stone 2 months ago he was here and evaluated and had a CT. CT showed on the right with hydronephrosis and 3 other stones in the right renal pelvis the largest measuring 4 mm Related Data Home Medications Medication Instructions Recorded Confirmed Fish Oil (#FISH OIL) #0 09/07/10 02/05/19 Previous Rx's Medication Instructions Recorded lovastatin 40 mg tablet 40 mg PO DAILY #90 tab 11/06/18 rosuvastatin 10 mg tablet 10 mg PO DAILY #90 tab 11/09/18 hydrocodone-acetaminophen 1 tab PO Q4-6H PRN #14 tab 09/05/19 ondansetron 4 mg PO Q8H PRN #10 tab 09/05/19 tamsulosin [Flomax] 0.4 mg PO BEDTIME #7 cap 09/05/19 hydrocodone-acetaminophen [[place]] 1 tab PO Q6H PRN #10 tab 10/24/19 ondansetron 4 mg PO Q8H PRN #10 tab 10/24/19 tamsulosin [Flomax] 0.4 mg PO DAILY #7 cap 10/24/19 Allergies Allergy/AdvReac Type Severity Reaction Status Date / Time metformin [METFORMIN] Allergy Unknown Verified 10/24/19 09:04 Review of Systems Review of Systems Narrative: GENERAL: Denies chills, fatigue, malaise, fever, sweats, travel HEENT: Denies sinus pain, ear pain, sore throat, difficulty swallowing, neck pain RESPIRATORY: Denies dyspnea, cough, wheezing, hemoptysis, sputum. CARDIOVASCULAR: Denies chest pain, palpitations, orthopnea, edema GASTROINTESTINAL: Denies nausea, vomiting, abdominal pain, diarrhea, constipation, melena. : See HPI MUSCULOSKELETAL: Denies weakness, joint pain, or bony pain SKIN: No rash, no erythema, no pruritus NEUROLOGIC: Denies weakness, dizziness, headache, numbness, change in speech, confusion PSYCHIATRIC: No concerning psychosocial issues. 12 point review of systems is negative except for those stated above and HPI Patient History Medical History Chickenpox (Resolved 1956) Colon polyps (Resolved Unknown) Hearing loss (Chronic 1996) History of tinnitus (Chronic 1994) Hyperlipidemia (Chronic Unknown) Kidney stones (Acute) Knee pain (Chronic Unknown) Measles (Resolved 1954) Type 2 diabetes mellitus (Chronic ~2014) Surgical History History of tonsillectomy Family History Brother Age: 60 Diabetes mellitus Social History Smoking Status: Former smoker Smoking Status: Former smoker alcohol intake frequency: 0-2 drinks per day Substance Use Type: does not use Exam Initial Vital Signs Initial Vital Signs: Vital Signs Temperature 97.8 F 10/24/19 09:00 Pulse Rate 66 10/24/19 09:00 Respiratory Rate 14 10/24/19 09:00 Blood Pressure 168/82 H 10/24/19 09:00 Pulse Oximetry 97 10/24/19 09:00 GENERAL: Well-appearing, well-nourished and in no acute distress. HEENT: Head atraumatic,EOMI, pupils reactive, face symmetric, moist mucous membranes CARDIOVASCULAR: Regular rate and rhythm without murmurs, rubs or gallops. RESPIRATORY: Breath sounds equal bilaterally, no wheezes rales or rhonchi. ABDOMEN: Soft, nontender. Normoactive bowel sounds all 4 quadrants. No guarding or rebound. : Mild right CVA tenderness EXTREMITIES: Normal range of motion, no clubbing or edema. Neurovascularly intact NEUROLOGICAL: Alert and oriented x4.Normal gait and speech. SKIN: Warm, dry, no laceration, no petechiae, no rashes or lesions. Course Orders Ordered: ED Orders 10/24/19 09:25 Complete Blood Count AUTO DIFF Stat Comprehensive Metabolic Panel Stat 10/24/19 11:30 Urine Microscopic Stat Discontinued Medications Ketorolac Tromethamine (Toradol) 30 mg IV NOW ONE Stop: 10/24/19 09:14 Last Admin: 10/24/19 09:25 Dose: 30 mg Documented by: BTONER Vital Signs Vital signs: Vital Signs - 8 hr 10/24/19 12:25 Pulse Rate 67 Blood Pressure 159/90 H Pulse Oximetry 98 MDM - Male Genitourinary Lab Data Attestation: I reviewed the patient's lab results. Result diagrams: 10/24/19 09:25 10/24/19 09:25 Labs: Lab Results 10/24/19 10/24/19 10/24/19 Range/Units 09: 09:25 11:30 WBC 7.7 (4.5-11.0) X10^3/uL RBC 4.54 (4.5-5.9) X10^6/uL Hgb 15.0 (13.5-17.5) g/dL Hct 42.7 (41-53) % MCV 94.2 (80-100) fL MCH 33.0 (26-34) PG MCHC 35.0 (30-36) % RDW 12.6 (11.6-14.8) % Plt Count 158 (150-400) X10^3/uL Neut % (Auto) 71.7 (50-75) % Lymph % (Auto) 19.0 L (25-40) % [place] % (Auto) 5.6 (3-14) % Eos % (Auto) 3.0 (2-4) % Baso % (Auto) 0.7 (0-2) % Neut # (Auto) 5500 (4651-8246) /uL Lymph # (Auto) 1500 (3876-3738) /uL Drew # (Auto) 400 (0-900) /uL Eos # (Auto) 200 (0-450) /uL Baso # (Auto) 100 (0-100) /uL Sodium 137 (137-145) mmol/L Potassium 4.3 (3.4-5.1) mmol/L Chloride 103 (98-107) mmol/L Carbon Dioxide 26 (22-32) mmol/L BUN 13 (9-20) mg/dL Creatinine 0.67 (0.66-1.25) mg/dL Estimated GFR > 60.0 (>60) mL/min BUN/Creatinine Ratio 19.4 (6-22) Glucose 193 H (80-110) mg/dL Calcium 9.2 (8.4-10.2) mg/dL Total Bilirubin 0.8 (0.2-1.3) mg/dL AST 30 (17-59) IU/L ALT 32 (<50) IU/L Alkaline Phosphatase 51 (38-126) U/L Total Protein 7.3 (6.3-8.2) g/dL Albumin 4.3 (3.5-5.0) g/dL Globulin 3.0 (1.7-4.1) g/dL Albumin/Globulin Ratio 1.4 (1.0-2.8) Urine RBC 1-5/hpf (0-5/HPF) Urine WBC 1-5/hpf (0-5/HPF) Urine Bacteria Few (2-10) H (None) Urine Mucus 1+ H (Negative) Ur Culture Indicated? Cult not indicated Urine Dip Bedside Urine Glucose Negative Bedside Urine Bilirubin - Negative Bedside Urine Ketone - Negative Urine Specific [place] 1.025 Bedside Urine Occult Blood + Bedside Urine pH 6.0 Bedside Urine Protein +/- 15 Bedside Urine Urobilinogen +/- 1mg Bedside Urine Nitrite - Negative Bedside Urine Leukocytes - Negative Esterase Imaging Data US - abdomen: Radiologist's Impression: PROCEDURE: US RENAL COMPLETE INDICATIONS: right flank hx of stones TECHNIQUE: Real-time scanning was performed of the kidneys and bladder, with image documentation. COMPARISON: [facility], CT, CT ABDOMEN PELVIS WO CON, 09/05/2019, 7:54. FINDINGS: Kidneys: Kidneys are normal in size. Right kidney measures 12.1 cm long; left kidney measures 13.6 cm long. Right renal cortical thickness is 1.8 cm; left renal cortical thickness is 2.1 cm. Renal cortical echotexture is normal. A 10 mm nonobstructing calculus is seen in the interpolar region of the right kidney. Additional 7 mm nonobstructing calculus is seen in the inferior pole of the right kidney. The small left renal calculus seen on prior CT from 09/05/2019 is not definitely visualized with ultrasound. There is a cyst in the inferior pole of the left kidney measuring up to 1.7 cm in maximum dimension. No hydronephrosis. No suspicious solid mass lesions. Bladder: Pre-void bladder volume is nondistended and not well evaluated. Miscellaneous: No free pelvic fluid. IMPRESSION: 1. Nonobstructing calculi in the right kidney measure 10 mm in the interpolar region and 7 mm in the inferior pole. There is no hydronephrosis. 2. Simple cyst in the inferior pole of the left kidney. The previously seen tiny nonobstructing left renal calculus on the CT from 09/05/2019 is not visualized sonographically. Dictated by: Dustin Ambriz M.D. on 10/24/2019 at 9:53 Approved by: Dustin Ambriz M.D. on 10/24/2019 at 9:59 [facility] Narrative Medical decision making narrative: Patient had a CT scan recently ultrasound was done today does show 2 stones in the renal pelvis largest measuring 10 mm. Patient is relatively pain-free in the ED he is ambulatory without difficulty. Renal function looks good and there is no sign of infection. I briefly discussed case with Dr. Quiroz offer patient to follow-up with. Discharge Plan Departure Patient Disposition: Home Clinical Impression: Kidney stones Discharge Date/Time: 10/24/19 12:26 Instructions: DI for Kidney Stones Activity Restrictions/Additional Instructions: * You've been diagnosed with kidney stone * What to do: Increase fluid intake, Strain urine, try to catch stone * Please follow-up with your primary care provider in the next 2-3 days, you may require urology consultation please discuss this with -If you should have fever, or pain is uncontrolled with medication at home or any other concerning symptoms return to ER for further evaluation MEDICATIONS Take Motrin 800 mg every 8 hours as needed for pain Take [place] every 6 hours if needed for severe pain Take Zofran every 4-6 hours if needed for nausea Take flomax once daily CONTROLLED SUBSTANCE DISCHARGE (Narcotoic/benzodiazepine) 1. You have been prescribed narcotic medications, it does have acetaminophen/Tylenol/paracetamol in it so do not take extra Tylenol or Tylenol containing products 2. Please understand that we cannot provide further refills of narcotics, benzodiazepines or controlled substances through the ED and her pain management will need to be through your provider. 3. While on these medications you cannot drive or operate heavy machinery. 4. You cannot sign legal documents or perform any duties such as this. 5. As long as you're taking opiate pain medications he should also be taking a stool softener such as Colace, Dulcolax, MiraLAX or prune juice, to help avoid constipation. Prescriptions: New tamsulosin [Flomax] 0.4 mg capsule 0.4 mg PO DAILY Qty: 7 RF: 0 hydrocodone-acetaminophen [[place]] 5-325 mg tablet 1 tab PO Q6H PRN (Reason: pain) Qty: 10 RF: 0 ondansetron 4 mg tablet,disintegrating 4 mg PO Q8H PRN (Reason: nausea and vomiting) Qty: 10 RF: 0 No Action Fish Oil (#FISH OIL) Qty: 0 RF: 0 lovastatin 40 mg tablet 40 mg PO DAILY Qty: 90 RF: 0 rosuvastatin [Crestor] 10 mg tablet 10 mg PO DAILY Qty: 90 RF: 0 tamsulosin [Flomax] 0.4 mg capsule 0.4 mg PO BEDTIME Qty: 7 RF: 0 ondansetron 4 mg tablet,disintegrating 4 mg PO Q8H PRN (Reason: nausea and vomiting) Qty: 10 RF: 0 hydrocodone-acetaminophen 5-325 mg tablet 1 tab PO Q4-6H PRN (Reason: pain) Qty: 14 RF: 0 Referrals: Jeannette Michaels MD [Primary Care Provider] - Rosa Quiroz MD [Physician] -
[2019-10-24] MEDS: KETOROLAC 60 MG/2 ML VIAL 30 MG IV (09:25)
[2019-10-24 09:35] LABS: Add Manual Diff / Slide Review NO; Basophils Absolute Auto 100 /uL (0-100); Basophils Percent Auto 0.7 % (0-2); Eosinophils Absolute Auto 200 /uL (0-450); Hematocrit 42.7 % (41-53); Lymphocytes Absolute Auto 1500 /uL (1100-4500); Mean Corpuscular Volume 94.2 fL (80-100); Monocytes Absolute Auto 400 /uL (0-900); Monocytes Percent Auto 5.6 % (3-14); Neutrophils Absolute Auto 5500 /uL (1500-7000); Neutrophils Percent Auto 71.7 % (50-75); Platelet Count 158 X10^3/uL (150-400); Red Blood Cell Count 4.54 X10^6/uL (4.5-5.9); Red Cell Distribution Width 12.6 % (11.6-14.8); White Blood Cell Count 7.7 X10^3/uL (4.5-11.0)
[2019-10-24 09:58] LABS: Alanine Aminotransferase 32 IU/L (<50); Albumin 4.3 g/dL (3.5-5.0); Albumin Globulin Ratio 1.4 (1.0-2.8); Alkaline Phosphatase 51 U/L (38-126); Aspartate Aminotransferase 30 IU/L (17-59); BUN Creatinine Ratio 19.4 (6-22); Bilirubin Total 0.8 mg/dL (0.2-1.3); Blood Urea Nitrogen 13 mg/dL (9-20); Calcium 9.2 mg/dL (8.4-10.2); Carbon Dioxide 26 mmol/L (22-32); Chloride 103 mmol/L (98-107); Estimated Glomerular Filt Rate > 60.0 mL/min (>60); Glucose 193 mg/dL (80-110); HEMOLYSIS < 15 (0-50); Potassium 4.3 mmol/L (3.4-5.1); Sodium 137 mmol/L (137-145); Total Protein 7.3 g/dL (6.3-8.2)
[2019-10-24 12:23] LABS: Bacteria Urine Few (2-10); Culture Indicated Urine Cult Not Indicated; Mucus Urine 1+ (Negative); RBC Urine 1-5/HPF (0-5/HPF); WBC Urine 1-5/HPF (0-5/HPF)
[2019-10-24 12:25] VITALS: BP 159/90; PULSE 67; O2SAT 98
== END 2019-10-24 12:26 | disposition home or self-care (01) ==
PROVIDERS: Emergency Provider Emergency Medicine; PCP Student in an Organized Health Care Education/Training Program
DX: N20.0 Calculus of kidney (principal); Z87.442 Personal history of urinary calculi
CPT/HCPCS: 36415; 76770; 80053; 81003; 81015; 85025; 96374; 99284; J1885

== ENCOUNTER → 2019-10-28 15:46 | Outpatient (CLI) | payer MEDICARE, OTHER, SELFPAY ==
--- NOTE | 2019-10-28 15:49 | DI.RAD.S_ITS ---
PROCEDURE: XR KUB INDICATIONS: kidney stone TECHNIQUE: One view of the abdomen acquired. COMPARISON: [facility], CT, CT ABDOMEN PELVIS WO CON, 09/05/2019, 7:54. FINDINGS: Surgical changes and devices: None. Bowel: Bowel gas pattern is normal. Sub 5 mm right nephrolithiasis radiographically visualized. Bones: No suspicious bony lesions. Spondylitic changes and facet arthropathy. IMPRESSION: Radiographically visible sub 5 mm right nephrolithiasis. Additional smaller bilateral renal calculi seen on the comparison CT are nonvisualized. Dictated by: Naman Us M.D. on 10/28/2019 at 16:31 Approved by: Naman Us M.D. on 10/28/2019 at 16:33
== END ==
PROVIDERS: PCP Student in an Organized Health Care Education/Training Program; Referring Provider Specialist; Visit Provider Specialist
DX: N20.0 Calculus of kidney (principal)
CPT/HCPCS: 74018

== ENCOUNTER → 2019-11-19 11:33 | Outpatient (CLI) | payer MEDICARE, OTHER, SELFPAY ==
[2019-11-20 06:46] LABS: COVID19 Sendout Not Detected (Not Detect)
== END ==
PROVIDERS: PCP Student in an Organized Health Care Education/Training Program; Visit Provider Physician Assistant
DX: Z01.812 Encounter for preprocedural laboratory examination (principal)
CPT/HCPCS: 87635

== ENCOUNTER 2019-11-22 06:39 | Day surgery (SDC) | payer MEDICARE, OTHER, SELFPAY ==
[2019-11-20 10:38] VITALS: BMI 26.4
--- NOTE | 2019-11-22 | DI.RAD.S_ITS ---
PROCEDURE: XR ABDOMEN 1V INDICATIONS: RIGHT KIDNEY STONE TECHNIQUE: One view of the abdomen acquired. COMPARISON: [facility], CT, CT ABDOMEN PELVIS WO CON, 09/05/2019, 7:54. FINDINGS: Contrast injection into the right ureter. No filling defect is demonstrated. Previously seen kidney stone in the right ureter at the pelvic brim on CT 09/05/2019 is not demonstrated. IMPRESSION: Fluoroscopic guidance for right ureteral injection. Dictated by: Panda Friend M.D. on 11/22/2019 at 13:59 Approved by: Panda Friend M.D. on 11/22/2019 at 14:01
--- NOTE | 2019-11-22 06:00 | DI.RAD.S_ITS ---
PROCEDURE: XR KUB INDICATIONS: Ureteral calculus TECHNIQUE: One view of the abdomen acquired. COMPARISON: [facility], US, US RENAL COMPLETE, 10/24/2019, 9:34. [facility], CT, CT ABDOMEN PELVIS WO CON, 09/05/2019, 7:54. [facility], CR, XR KUB, 10/28/2019, 15:39. FINDINGS: Surgical changes and devices: None. Bowel: Bowel gas pattern is normal. Soft tissues: The previously seen obstructing calculus in the right ureter which measures [address] 09/05/2019 at the pelvic brim this is not identified. Small nonobstructing calculi at the inferior pole of the right kidney are again seen. Punctate calculus in the left kidney is not definitely seen. No suspicious abdominal calcifications. Visualized solid organ contours appear normal in size. Bones: No suspicious bony lesions. IMPRESSION: The previously seen obstructing calculus in the right ureter is not identified. If clinically indicated consider CT KUB for further evaluation. Nonobstructing calculi at the inferior pole the right kidney are again seen. Dictated by: Panda Friend M.D. on 11/22/2019 at 8:08 Approved by: Panda Friend M.D. on 11/22/2019 at 8:14
[2019-11-22 07:19] VITALS: BP 151/90; PULSE 75; RESP 16; TEMP 37.1; O2SAT 97; BMI 26.7
[2019-11-22] MEDS: LACTATED RINGERS 1,000 ML 42 ML IV (07:19)
--- NOTE | 2019-11-22 07:23 | PM.PREOP ---
Pre-operative Note Interval Note History & Physical reviewed/Exam performed by Physician: Yes Changes to H&P: No
[2019-11-22] MEDS: CEFAZOLIN 2 GM/100 ML FROZ.PIGGY IV (07:45)
--- NOTE | 2019-11-22 07:54 | SUR.PREOP ---
Dr Quiroz and Dr Del Cid notified of POC glucose = 173. No orders at this time.
[2019-11-22] MEDS: IOPAMIDOL 15 ML VIAL INJ (08:10)
--- NOTE | 2019-11-22 08:10 | SUR.OPER ---
Lithotomy on padded OR bed, head on pillow, arms secured on padded arm boards at <90 degrees abduction. Legs secured in padded yellow fins stirrups.
--- NOTE | 2019-11-22 08:21 | P.OP_ITS ---
Operative Date/Time/Diagnoses Date of procedure: 11/22/19 Time of procedure: 08:21 Pre-op diagnosis: 1. 7 mm right distal ureteral calculus Post-op diagnosis: other (1. Same 2. Interval passage of index calculi) Procedure & Clinicians Procedure: 1. Cystoscopy and right retrograde pyelogram. Same procedure as scheduled: No (Preoperative KUB indicated probable interval passage of stone ) Indications: 1. Obstructing 7 mm right distal ureteral calculus Surgeon: Rosa Quiroz Click Yes if Unassisted: Yes Anesthesia Type: General Operative Notes Findings: 1. Urethra-normal 2. External sphincter-coapted 3. Prostate-3.5-4 cm length with elevated median bar 4. Bladder-1+ trabeculation. The orifices are normal position bilaterally. Both have a golf hole configuration. There was a tiny calculus line dependently in the floor of the bladder that was irrigated out. Closure Type: not applicable Specimen(s): none sent Estimated Blood Loss (mL): 0 Blood products transfused: none Tourniquet time (min): 0 Procedure in detail: Patient was positioned in supine administered general anesthesia. He was then repositioned semi lithotomy and the lower abdomen, genitalia, and perineum were prepped and draped in sterile fashion. Next, the 22 [place] panendoscope was passed lower urinary tract with the findings as described above. A 10 [place] cone-tipped catheter was then used to occlude the right ureteral orifice and performed a right retrograde pyelogram. Numerous images were obtained there was no evidence of collecting system dilation, filling defect, stone, or inhibition of contrast drainage and post injection images. The bladder was then drained completely and all instrumentation was removed. The patient was repositioned in supine, awakened, transferred to [facility], and transferred to recovery room. Complications: none Post-operative Condition: stable Disposition: PACU Plan for aftercare: Discharge home
[2019-11-22 08:24] VITALS: BP 104/66; PULSE 56; RESP 16; TEMP 36.3; O2SAT 96
[2019-11-22 08:29] VITALS: BP 109/71; PULSE 60; RESP 14; TEMP 36.2; O2SAT 96
[2019-11-22 08:34] VITALS: BP 116/69; PULSE 64; RESP 15; TEMP 36.7; O2SAT 96
[2019-11-22 08:39] VITALS: BP 120/78; PULSE 68; RESP 20; TEMP 36.3; O2SAT 96
== END 2019-11-22 09:00 | disposition home or self-care (01) ==
PROVIDERS: PCP Student in an Organized Health Care Education/Training Program; Referring Provider Student in an Organized Health Care Education/Training Program; Visit Provider Specialist
PROC: (CPT 52005; principal; 2019-11-22 07:45)
DX: N20.1 Calculus of ureter (principal); E11.9 Type 2 diabetes mellitus without complications; Z79.84 Long term (current) use of oral hypoglycemic drugs
CPT/HCPCS: 52005; 74018; 76000; J0690; J2250; J2405; J2704; J3010

== ENCOUNTER → 2020-01-14 09:35 | Outpatient (CLI) | payer MEDICARE, OTHER, SELFPAY ==
--- NOTE | 2020-01-14 09:37 | DI.RAD.S_ITS ---
PROCEDURE: XR KUB INDICATIONS: kidney stones TECHNIQUE: One view of the abdomen acquired. COMPARISON: [facility], CR, XR KUB, 10/28/2019, 15:39. [facility], CT, CT ABDOMEN PELVIS WO CON, 09/05/2019, 7:54. [facility], CR, XR KUB, 11/22/2019, 7:20. FINDINGS: Surgical changes and devices: None. Bowel: Bowel gas pattern is normal. Soft tissues: Bilateral renal stones and right ureteral stone seen on the comparison CT are not visualized. Visualized solid organ contours appear normal in size. Bones: No suspicious bony lesions. Degenerative changes in lumbar spine. IMPRESSION: Bilateral renal stones and right ureteral stone seen on the comparison CT are not visualized on x-ray. If clinically indicated, follow-up CT KUB may be obtained. Dictated by: Evy Goodson M.D. on 01/14/2020 at 10:03 Approved by: Evy Goodson M.D. on 01/14/2020 at 10:07
[2020-01-14 12:52] LABS: Calcium 9.3 mg/dL (8.4-10.2); Uric Acid 5.7 mg/dL (3.5-8.5)
[2020-01-14 13:10] LABS: Prostate Specific Antigen 0.613 ng/mL (0.10-4.00)
[2020-01-15 10:03] LABS: Parathyroid Hormone Int 37 pg/mL (15-65)
== END ==
PROVIDERS: PCP Student in an Organized Health Care Education/Training Program; Referring Provider Specialist; Visit Provider Specialist
DX: R97.20 Elevated prostate specific antigen [PSA] (principal); N20.0 Calculus of kidney
CPT/HCPCS: 36415; 74018; 82310; 83970; 84153; 84550

== ENCOUNTER → 2020-01-20 08:03 | Outpatient (CLI) | payer MEDICARE, OTHER, SELFPAY ==
--- NOTE | 2020-01-20 | DI.US.S_ITS ---
PROCEDURE: US ABD AORTA ANEURYSM SCREEN INDICATIONS: Personal history of nicotine dependence TECHNIQUE: Real time scanning was performed of the aorta and iliac arteries, with image documentation. COMPARISON: None. FINDINGS: Aorta: Proximal aortic diameter measures 2.9 cm. Mid-aorta measures 2.0 cm. Distal aortic diameter is 1.8 cm. Iliac arteries: Right common iliac artery measures 1.5 cm. Left common iliac artery measures 1.5 cm. IMPRESSION: Abdominal aortic ectasia. 5 year sonographic surveillance recommended. Dictated by: Theresa Mason M.D. on 01/20/2020 at 10:48 Approved by: Theresa Mason M.D. on 01/20/2020 at 10:53
== END ==
PROVIDERS: PCP Student in an Organized Health Care Education/Training Program; Referring Provider Student in an Organized Health Care Education/Training Program; Visit Provider Student in an Organized Health Care Education/Training Program
DX: Z13.6 Encounter for screening for cardiovascular disorders (principal); I77.811 Abdominal aortic ectasia; Z87.891 Personal history of nicotine dependence
CPT/HCPCS: 76706

== ENCOUNTER → 2020-05-29 14:50 | Outpatient (CLI) | payer MEDICARE, OTHER, SELFPAY ==
[2020-05-29] MEDS: COVID-19 VACC #2, MRNA(MOD) 100 MCG/0.5 ML VIAL IM (14:58)
== END ==
PROVIDERS: PCP Student in an Organized Health Care Education/Training Program; Visit Provider Internal Medicine
DX: Z23 Encounter for immunization (principal)
CPT/HCPCS: 0011A; 0012A; 91301

== ENCOUNTER → 2021-01-08 09:29 | Outpatient (CLI) | payer MEDICARE, OTHER, SELFPAY ==
[2021-01-08 10:34] LABS: Hemoglobin A1C% w Est Avg Glu 6.2 % (4.0-6.0)
[2021-01-08 10:38] LABS: Alanine Aminotransferase 26 IU/L (<50); Albumin 4.6 g/dL (3.5-5.0); Albumin Globulin Ratio 1.5 (1.0-2.8); Alkaline Phosphatase 50 U/L (38-126); Aspartate Aminotransferase 33 IU/L (17-59); BUN Creatinine Ratio 13.5 (6-22); Bilirubin Total 0.9 mg/dL (0.2-1.3); Blood Urea Nitrogen 10 mg/dL (9-20); Calcium 9.7 mg/dL (8.4-10.2); Carbon Dioxide 26 mmol/L (22-32); Chloride 103 mmol/L (98-107); Estimated Glomerular Filt Rate > 60.0 mL/min (>60); Glucose 167 mg/dL (80-110); HEMOLYSIS < 15 (0-50); Potassium 4.5 mmol/L (3.4-5.1); Sodium 139 mmol/L (137-145); Total Protein 7.6 g/dL (6.3-8.2)
[2021-01-08 11:10] LABS: Prostate Specific Antigen 0.681 ng/mL (0.10-4.00)
[2021-01-08 11:21] LABS: Creatinine Urine Random 174.5 mg/dL
[2021-01-08 11:26] LABS: Microalbumi Creatinin Ratio Ur 5.1 ug/mg CR (<30); Microalbumin Urine Random 0.9 mg/dL (0-1.6)
== END ==
PROVIDERS: Family Provider Student in an Organized Health Care Education/Training Program; PCP Student in an Organized Health Care Education/Training Program; Referring Provider Specialist; Visit Provider Specialist
DX: R97.20 Elevated prostate specific antigen [PSA] (principal); E11.9 Type 2 diabetes mellitus without complications; E78.5 Hyperlipidemia, unspecified; E83.52 Hypercalcemia
CPT/HCPCS: 36415; 80053; 82043; 82570; 83036; 84153

== ENCOUNTER → 2021-06-18 15:50 | Outpatient (CLI) | payer OTHER, SELFPAY ==
[2021-06-18 17:53] LABS: Prostate Specific Antigen 0.676 ng/mL (0.10-4.00)
== END ==
PROVIDERS: Family Provider Student in an Organized Health Care Education/Training Program; PCP Student in an Organized Health Care Education/Training Program; Referring Provider Specialist; Visit Provider Specialist
DX: R97.20 Elevated prostate specific antigen [PSA] (principal)
CPT/HCPCS: 36415; 84153

== ENCOUNTER → 2022-01-10 15:32 | Outpatient (CLI) | payer OTHER, SELFPAY ==
[2022-01-10 18:59] LABS: Blood Urea Nitrogen 13 mg/dL (9-20); Calcium 8.9 mg/dL (8.4-10.2); Carbon Dioxide 22 mmol/L (22-32); Chloride 102 mmol/L (98-107); Estimated Glomerular Filt Rate > 60 mL/min (>60); Glucose 97 mg/dL (80-110); HEMOLYSIS 21 (0-50); Sodium 137 mmol/L (137-145)
== END ==
PROVIDERS: Specialist; Family Provider Student in an Organized Health Care Education/Training Program; PCP Student in an Organized Health Care Education/Training Program; Referring Provider Student in an Organized Health Care Education/Training Program; Visit Provider Student in an Organized Health Care Education/Training Program
DX: N40.0 Benign prostatic hyperplasia without lower urinary tract symptoms (principal); R31.9 Hematuria, unspecified
CPT/HCPCS: 36415; 80048

== ENCOUNTER → 2022-09-05 11:46 | Outpatient (CLI) | payer OTHER, SELFPAY ==
[2022-09-05 12:39] LABS: Estimated Glomerular Filt Rate > 60 mL/min (>60)
== END ==
PROVIDERS: Family Provider Student in an Organized Health Care Education/Training Program; PCP Family Medicine; Referring Provider Radiology Diagnostic Radiology; Visit Provider Radiology Diagnostic Radiology
DX: N20.0 Calculus of kidney (principal)
CPT/HCPCS: 36415; 82565

== ENCOUNTER → 2022-09-07 11:52 | Outpatient (CLI) | payer OTHER, SELFPAY ==
--- NOTE | 2022-09-07 11:53 | DI.CT.S_ITS ---
PROCEDURE: CT ABDOMEN PELVIS WO/W CON INDICATIONS: bilateral nephrolithiasis, hematuria TECHNIQUE: Optional 5 mm thick noncontrast images acquired from the diaphragm to the symphysis pubis. After the administration of intravenous contrast, 5 mm thick images acquired from the diaphragm to the symphysis pubis after a 10-minute delay. 2 mm thick coronal and sagittal reformats were then performed of the kidneys and ureters. For radiation dose reduction, the following was used: automated exposure control, adjustment of mA and/or kV according to patient size. COMPARISON: [facility], CT, CT ABDOMEN PELVIS WO CON, 09/05/2019, 7:54. [facility], CT, CT KIDNEY URETER BLADDER (KUB), 04/14/2018, 5:29. [facility], CT, KIDNEY/ URETER/BLADDER, 07/06/2012, 10:52. FINDINGS: Image quality: Excellent. Lung bases: Lung bases are clear. Heart size is normal. Moderate coronary artery calcification can be seen. Urinary system: On precontrast imaging, nonobstructing bilateral renal stones are seen. The largest on the right measures to 6 mm and demonstrates a density of 300 Hounsfield units. The largest on the left measures up to 7 mm and demonstrates a density of 300 Hounsfield units. No hydronephrosis is seen on either side. Both kidneys are normal in size. No perinephric fat stranding. There is normal bilateral renal enhancement. Renal calyces appear normal in morphology when filled with contrast. Opacified portions of both ureters demonstrate normal caliber. Bladder wall thickness is normal. No calcified bladder stones. Other solid organs: Liver is normal in size and enhancement. Gallbladder wall is not thickened. Biliary system is non dilated. Pancreas enhances normally. Spleen is normal in size and enhancement. No adrenal nodules. Peritoneum and bowel: Bowel loops demonstrate normal wall thickness and caliber. No free fluid or air. Nodes and vessels: No retroperitoneal or mesenteric adenopathy by size criteria. Aorta and inferior vena cava are normal in size. Atherosclerotic calcification is noted. Abdominal wall: No ventral hernias. Pelvis: No pathologic free pelvic fluid. No inguinal hernias or adenopathy. Bones: No suspicious bony lesions. No vertebral body compression fractures. Remote, healed right posterolateral rib fractures can be seen. Degenerative changes are seen throughout, which are worst within the lumbar spine. IMPRESSION: Nonobstructing bilateral renal stones can be seen. No renal masses are seen. No ureteral abnormalities are seen. No focal bladder lesion can be seen. Additional findings: Remote, healed right posterior rib fractures Moderate coronary artery calcification Focal lumbar spine degenerative change Dictated by: Jose De Jesus Ferris M.D. on 09/07/2022 at 16:28 Approved by: Jose De Jesus Ferris M.D. on 09/07/2022 at 16:33
== END ==
PROVIDERS: Family Provider Student in an Organized Health Care Education/Training Program; PCP Family Medicine; Referring Provider Specialist; Visit Provider Specialist
DX: N20.0 Calculus of kidney (principal); R31.9 Hematuria, unspecified; I25.10 Atherosclerotic heart disease of native coronary artery without angina pectoris; M47.816 Spondylosis without myelopathy or radiculopathy, lumbar region
CPT/HCPCS: 74178; Q9967

== ENCOUNTER → 2022-09-14 12:07 | Outpatient (CLI) | payer OTHER, SELFPAY ==
--- NOTE | 2022-09-14 | DI.CT.S_ITS ---
PROCEDURE: CT LUMBAR SPINE WO CON INDICATIONS: Spinal stenosis, lumbar region TECHNIQUE: Noncontrast 3 mm thick sections acquired from the T12 level to the sacrum. Sagittal and coronal reformats were constructed. For radiation dose reduction, the following was used: automated exposure control. COMPARISON: None. FINDINGS: Image quality: Excellent. Bones: There is normal bony alignment. No acute vertebral body compression fractures. No suspicious lytic or blastic bony lesions. No pars defects. T12-L1: No significant spinal canal stenosis or neural foraminal narrowing. L1-L2: Loss of disc space height with posterior disc-osteophyte complex as well as mild bilateral facet hypertrophy, buckling of the ligamentum flavum, and epidural lipomatosis. Findings result in moderate to severe narrowing of the spinal canal with effacement of the lateral recesses and severe right and moderate left neural foraminal narrowing. L2-L3: Disc space narrowing with circumferential disc bulging and posterior disc-osteophyte complex as well as mild bilateral facet hypertrophy, buckling of the ligamentum flavum, and epidural lipomatosis. Findings result in moderate to severe narrowing of the spinal canal as well as moderate to severe right and moderate left neural foraminal narrowing. L3-L4: Loss of disc space height with moderate circumferential disc bulging as well as moderate bilateral facet hypertrophy and buckling of the ligamentum flavum. Findings result in severe narrowing of the spinal canal with effacement of the lateral recesses and moderate right and moderate to severe left neural foraminal narrowing. L4-L5: Postsurgical changes from left hemilaminotomy. Loss of disc space height with circumferential disc bulging as well as moderate to severe facet hypertrophy, greater on the left, and buckling of the right ligamentum flavum. There appears to be residual moderate to severe narrowing of the spinal canal as well as moderate right and severe left neural foraminal narrowing. L5-S1: Mild circumferential disc bulging and mild bilateral facet hypertrophy resulting in moderate bilateral neural foraminal narrowing without significant spinal canal stenosis. Soft tissues: No retroperitoneal masses or hematomas. Visualized aorta is normal in caliber. Small nonobstructing calculi are seen in the inferior pole of the right kidney. No hydronephrosis. Aortic atherosclerotic calcifications are present. IMPRESSION: 1. Moderate to severe multilevel degenerative disc disease and facet hypertrophy as described in detail in the body of the report. 2. High-grade spinal canal narrowing is seen at the L1-2, L2-3, L3-4, and L4-5 levels. 3. Postsurgical changes are seen at L4-5 with suspected residual or recurrent moderate to severe narrowing of the spinal canal. 4. Multilevel high-grade neural foraminal narrowing. Approved by: Dustin Ambriz M.D. on 09/15/2022 at 11:52
== END ==
PROVIDERS: Family Provider Student in an Organized Health Care Education/Training Program; PCP Family Medicine; Referring Provider Student in an Organized Health Care Education/Training Program; Visit Provider Student in an Organized Health Care Education/Training Program
DX: M48.061 Spinal stenosis, lumbar region without neurogenic claudication (principal); M51.36 Other intervertebral disc degeneration, lumbar region; M51.37 Other intervertebral disc degeneration, lumbosacral region; M47.816 Spondylosis without myelopathy or radiculopathy, lumbar region; M47.817 Spondylosis without myelopathy or radiculopathy, lumbosacral region; M79.604 Pain in right leg; M79.605 Pain in left leg
CPT/HCPCS: 72131

== ENCOUNTER → 2022-09-22 12:07 | Outpatient (ROUT) | payer OTHER, SELFPAY ==
[2022-09-22 12:15] LABS: Prothrombin Time 11.4 SECONDS (10.1-12.7)
== END ==
PROVIDERS: Family Provider Student in an Organized Health Care Education/Training Program; PCP Family Medicine; Visit Provider Family Medicine
DX: M54.42 Lumbago with sciatica, left side (principal); M54.41 Lumbago with sciatica, right side; G89.29 Other chronic pain
CPT/HCPCS: 85610

== ENCOUNTER → 2022-09-22 13:22 | Outpatient (CLI) | payer OTHER, SELFPAY ==
--- NOTE | 2022-09-22 | DI.RAD.S_ITS ---
PROCEDURE: XR LUMBAR SPINE MIN 4V INDICATIONS: BACK PAIN TECHNIQUE: 5 views of the lumbar spine acquired, including flexion and extension views. COMPARISON: None. FINDINGS: Bones: 5 nonrib-bearing vertebrae are present. There is trace, approximately 3 millimeters of L2-L3 retrolisthesis.. No vertebral body compression fractures. No suspicious bony lesions. Moderate degenerative disc changes noted throughout the lumbar spine. Moderate L3-L4, L4-L5 and L5-S1 facet arthropathy. Mild L1-L2 and L2-L3 facet arthropathy. Soft tissues: Overlying bowel gas pattern is normal. No suspicious soft tissue calcifications. Flexion/extension: There is normal range of motion, with preserved vertebral body alignment. IMPRESSION: 1. Multilevel degenerative disc disease. 2. Multilevel facet arthropathy. 3. No fracture. No acute osseous lesion. If symptoms and/or clinical suspicion for pathology persists, evaluation with MRI should be considered for further assessment. Dictated by: Shanita Rosaels MD, PhD on 09/22/2022 at 15:08 Approved by: Shanita Rosales MD, PhD on 09/22/2022 at 15:09
== END ==
PROVIDERS: Family Provider Student in an Organized Health Care Education/Training Program; Referring Provider Student in an Organized Health Care Education/Training Program; Visit Provider Student in an Organized Health Care Education/Training Program
DX: M51.16 Intervertebral disc disorders with radiculopathy, lumbar region (principal); M47.26 Other spondylosis with radiculopathy, lumbar region; M47.27 Other spondylosis with radiculopathy, lumbosacral region; M48.061 Spinal stenosis, lumbar region without neurogenic claudication; M79.604 Pain in right leg
CPT/HCPCS: 72110; 85610

== ENCOUNTER → 2023-07-31 09:26 | Outpatient (CLI) | payer OTHER, SELFPAY ==
--- NOTE | 2023-07-31 09:29 | DI.ECHO.S_ITS ---
[facility]+ [facility] : : [id number] : [place] : : [id number] : : Phone: [phone] Echocardiogram Report + + :Name: BOB MOONEY Study Date: 07/31/2023 Height: 72 in : :Hospital ReadingLocation: Weight: 183 lb : : Gender: Male BSA: 2.1 m2 : :: 1950 Age: 73 yrs BP: 134/87 mmHg: :Reason For Study: AORTIC STENOSIS : :Ordering Physician: TY, : :NELIA Performed By: Misty Rocha : :Referring: NELIA CRAWFORD : + + Interpretation Summary The ejection fraction is estimated to be 55-60%. Diastolic parameters suggest probable normal left ventricular diastolic function and normal filling pressures. The right ventricle is normal in size and function. There is severe aortic stenosis. The IVC is of normal diameter and collapses greater than 50% with a sniff. This suggests a low right atrial pressure of 3 mm Hg. Would recommend cardiology consultation for severe aortic stenosis. Procedure: A two-dimensional transthoracic echocardiogram with color flow and Doppler was performed. The study quality was technically adequate. There is no prior echocardiogram noted for this patient. The patient was in sinus rhythm with heart rates between 71-84 bpm during the exam. Left Ventricle: The left ventricle is normal in size and wall thickness. The ejection fraction is estimated to be 55-60%. There are no obvious focal wall motion abnormalities noted but poor endocardial definition reduces the sensitivity for the detection of such. Diastolic parameters suggest probable normal left ventricular diastolic function and normal filling pressures. Right Ventricle: The right ventricle is normal in size and function. Atria: The left atrial size is normal. Right atrial size is normal. There is no Doppler evidence for an interatrial shunt. Mitral Valve: There is mild mitral annular calcification. There is trace mitral regurgitation. Aortic Valve: The aortic valve is moderately calcified. The peak aortic velocity is 3.5 m/sec. The aortic valve mean gradient is 34 mmHg. The calculated aortic valve area is 0.86 cm2. There is severe aortic stenosis. There is trace aortic regurgitation. Tricuspid Valve: The tricuspid valve is normal in structure and function. There is trace tricuspid regurgitation. Pulmonic Valve: The pulmonic valve is not well visualized. There is no pulmonic valvular regurgitation. Great Vessels: The aortic root is normal size. The dimensions of the ascending aorta are normal. The IVC is of normal diameter and collapses greater than 50% with a sniff. This suggests a low right atrial pressure of 3 mm Hg. Pericardium/ Pleura There is no pericardial effusion. There is no pleural effusion. MMode/2D Measurements & Calculations LVIDd: 4.9 cm LVOT diam: 2.2 cm LVIDs: 3.3 cm Ao root diam: 3.1 cm FS: 31.5 % asc Aorta Diam: 3.6 cm IVSd: 0.89 cm Ao Arch Diam (Prox Trans): 2.9 cm LVPWd: 1.1 cm LV matamoros. diameter/BSA (cm/m^2): 2.4 LV sys. diameter/BSA (cm/m^2): 1.6 LA A2 area: 16.3 cm2 RA long axis: 6.2 cm LA A4 area: 15.4 cm2 RA area: 18.6 cm2 LA length (vol): 5.6 cm RA vol: 47.7 ml LA vol: 38.4 ml RA : 23.2 ml/m2 LA vol index: 18.7 ml/m2 IVC diam: 1.5 cm RVD1 (basal): 3.3 cm TAPSE: 2.1 cm Doppler Measurements & Calculations Ao V2 max: 354.3 cm/sec LVOT Max Kenn: 82.1 cm/sec Ao V2 mean: 264.9 cm/sec LV V1 max P.7 mmHg Ao max P.2 mmHg LV V1 VTI: 17.9 cm Ao mean P.3 mmHg KEVIN(I,D): 0.89 cm2 Ao V2 VTI: 75.1 cm KEVIN(V,D): 0.86 cm2 sev ratio: 0.24 KEVIN indexed to BSA (cm^2/m^2): 0.43 MV E max kenn: 61.1 cm/sec PA V2 max: 86.1 cm/sec MV A max kenn: 84.5 cm/sec PA V2 mean: 64.3 cm/sec MV E/A: 0.72 PA mean P.8 mmHg Med Peak E' Kenn: 5.0 cm/sec PA pr(Accel): 29.3 mmHg E/E' med: 12.3 Lat Peak E' Kenn: 8.3 cm/sec E/E' lat: 7.4 E/e' average: 9.9 MV dec time: 0.22 sec SV(LVOT): 66.5 ml Reading Physician:ALLEGRA
== END ==
PROVIDERS: Family Provider Student in an Organized Health Care Education/Training Program; PCP Family Medicine; Referring Provider Family Medicine; Visit Provider Family Medicine
DX: I34.81 Nonrheumatic mitral (valve) annulus calcification (principal); I35.0 Nonrheumatic aortic (valve) stenosis
CPT/HCPCS: 93306

== ENCOUNTER → 2023-08-23 14:37 | Outpatient (CLI) | payer OTHER, SELFPAY ==
--- NOTE | 2023-08-23 14:40 | DI.RAD.S_ITS ---
PROCEDURE: XR HAND RT 2V INDICATIONS: PAIN TECHNIQUE: Two views of the hand acquired. COMPARISON: None. FINDINGS: Bones: No acute fractures or dislocations. Carpal bones are normally aligned. Suspected mild chronic deformity of the 5th metacarpal related to prior trauma. No suspicious bony lesions. Mild 1st carpometacarpal and triscaphe degenerative changes. Moderate radiocarpal degenerative changes minimal scattered degenerative changes of the interphalangeal joints of the fingers. Small juxta-articular lucencies are seen, most notably at the 3rd proximal phalangeal base. Soft tissues: Radiodense foreign body is seen along the radial aspect of the index finger at the level of the proximal phalangeal shaft. IMPRESSION: 1. 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 2. Juxta-articular lucencies may represent degenerative subchondral cystic changes or chronic osseous erosions. 3. Radiodense foreign body in the subcutaneous tissues radial to the 2nd proximal phalangeal shaft. Approved by: Dustin Ambriz M.D. on 08/23/2023 at 16:19
--- NOTE | 2023-08-23 14:40 | DI.RAD.S_ITS ---
PROCEDURE: XR HAND LT 2V INDICATIONS: PAIN TECHNIQUE: 2 views of the hand acquired. COMPARISON: None. FINDINGS: Bones: No acute fractures or dislocations. Carpal bones are normally aligned. No suspicious bony lesions. Suspected small chronic osseous erosions at the 2nd and 3rd proximal phalangeal bases. Additional nonspecific juxta-articular lucencies are seen in multiple locations. Moderate degenerative changes of the 1st carpometacarpal joint and triscaphe joint. Small marginal osteophytes are present. Mild degenerative changes are seen at the interphalangeal joints of the fingers. Soft tissues: No suspicious soft tissue calcifications. No nodular soft tissue swelling. IMPRESSION: 1. Moderate arthritic changes in the hand most notably at the 1st carpometacarpal joint. 2. Juxta-articular lucencies are suspicious for chronic osseous erosions versus degenerative subchondral cystic changes. Recommend correlation to exclude an underlying inflammatory arthritis. Approved by: Dustni Ambriz M.D. on 08/23/2023 at 16:24
[2023-08-23 16:20] LABS: Rheumatoid Factor < 8.6 IU/mL (<12.0)
== END ==
PROVIDERS: Family Provider Student in an Organized Health Care Education/Training Program; PCP Family Medicine; Referring Provider Family Medicine; Visit Provider Family Medicine
DX: M19.041 Primary osteoarthritis, right hand (principal); M79.641 Pain in right hand; M79.642 Pain in left hand
CPT/HCPCS: 36415; 73120; 86430